=== PATIENT | female | born 1945 | race Caucasian/White ===

== ENCOUNTER → 2019-02-16 | Outpatient (REF) | payer MEDICARE, OTHER | LOC: M LAB REF 17:04 | PROVIDERS: ATTEND Advanced Practice Midwife | DX: R30.0 Dysuria (principal) ==

== ENCOUNTER 2019-08-22 07:36 | Inpatient (IN) | payer MEDICARE, OTHER ==
[~2019-08-22] VITALS: Ht 172.7 cm; Wt 88.2 kg
[2019-08-22] MEDS ORDERED: ROPI3TAB3 PO ×2 (07:47→14:24)
[2019-08-22] MEDS ORDERED: GABA-843 PO (07:47)
[2019-08-22] MEDS ORDERED: ATOR1TAB21 PO (07:47)
[2019-08-22] MEDS ORDERED: MAGN1CAP PO (07:47)
[2019-08-22] MEDS ORDERED: POTA1TAB14 PO (07:47)
[2019-08-22] MEDS ORDERED: PLAV1TAB2 PO (07:47)
[2019-08-22] MEDS ORDERED: OCUV1CAP4 PO (07:47)
[2019-08-22] MEDS ORDERED: ASPI81TA85 PO (07:47)
[2019-08-22] MEDS ORDERED: VITA-122 PO (07:49)
[2019-08-22] MEDS ORDERED: CVS2500C PO (07:49)
[2019-08-22] MEDS ORDERED: CARB10TA6 PO (07:49)
[2019-08-22 09:33] LABS: BASO % 0.2 % (0.0-1.0); EOS % 0.2 % (0.0-3.0); HEMATOCRIT 41.9 % (36.0-47.0); HEMOGLOBIN 13.6 g/dl (12.0-15.5); LYMPH # 0.4 10^3/uL (1.5-5.0); LYMPH % 6.7 % (24.0-44.0); MEAN CORPUSCULAR HEMOGLOBIN 32.2 pg (27.0-33.0); MEAN CORPUSCULAR HGB CONC 32.5 g/dl (32.0-36.5); MEAN CORPUSCULAR VOLUME 99.1 fl (80.0-96.0); MONO # 0.1 10^3/uL (0.0-0.8); MONO % 2.2 % (0.0-5.0); NEUTROPHILS % 90.5 % (36.0-66.0); PLATELET COUNT, AUTOMATED 167 10^3/uL (150-450); RED BLOOD COUNT 4.23 10^6/uL (4.00-5.40); WHITE BLOOD COUNT 5.6 10^3/uL (4.0-10.0)
[2019-08-22 10:05] LABS: ALBUMIN 3.7 GM/DL (3.2-5.2); ALT/SGPT 9 U/L (12-78); BILIRUBIN,DIRECT 0.2 MG/DL (0.0-0.2); BILIRUBIN,TOTAL 2.6 MG/DL (0.2-1.0); BLOOD UREA NITROGEN 27 MG/DL (7-18); CALCIUM LEVEL 8.9 MG/DL (8.8-10.2); CARBON DIOXIDE LEVEL 30 MEQ/L (21-32); CHLORIDE LEVEL 105 MEQ/L (98-107); CK-MB VALUE MASS < 1.0 NG/ML (<3.6); CPK CREATINE PHOSPHOKINASE 62 U/L (26-192); CREATININE FOR GFR 0.82 MG/DL (0.55-1.30); GLOMERULAR FILTRATION RATE > 60.0 (>39); GLUCOSE, FASTING 95 MG/DL (70-100); LIPASE 107 U/L (73-393); MB/CK RELATIVE INDEX 1.61 (< OR =4); SODIUM LEVEL 141 MEQ/L (136-145); TOTAL PROTEIN 6.6 GM/DL (6.4-8.2); TROPONIN I < 0.02 NG/ML (< 0.10)
[2019-08-22] MEDS: GASTROGRAFIN SOLUTION 30ML PO SCH ×2 (10:24→10:55)
--- NOTE | 2019-08-22 10:35 | REP ---
Chest x-ray: Two views. History: Abdomen pain. Comparison chest x-ray February 25, 2010. Findings: There is a moderate S-shaped thoracic scoliotic curve unchanged. Heart is mildly prominent also unchanged. There is plate-like atelectasis in the left base. Lung sexton are otherwise clear. Pleural angles are sharp. Pulmonary vasculature is not increased. Impression: Thoracic scoliosis. Mildly prominent heart unchanged. Plate-like atelectasis left base mild in degree. Otherwise negative. Electronically Signed by Sushil Mills MD 08/22/2019 10:27 A
[2019-08-22] MEDS ORDERED: NS 1,000 ML IV SCH (11:15)
[2019-08-22] MEDS ORDERED: ISOVUE-370 76% 100ML VIAL (Q9967) As Ordered ONE (11:19)
--- NOTE | 2019-08-22 12:08 | REP ---
CT ABDOMEN PELVIS WITH IV AND ORAL CONTRAST: HISTORY: Right lower quadrant pain and guarding. No comparison CT study. CT CONTRAST DOSE: 100 mL of intravenous Isovue 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 The lung bases show mild plate-like atelectasis bilaterally in the lower lobes. No pleural effusion or upper abdominal ascites is seen. The liver is normal in size. There are three or four tiny cysts along the inferior edge of the right lobe of the liver. The largest of these cysts measures 12 mm in greatest diameter. No focal splenic lesion is seen. The gallbladder is distended measuring up to 9.3 cm in greatest dimension x 5.3 x 4.5 cm. Its lumen is homogeneous. No stone is visible by CT. Gallbladder wall is not thickened. There is however mild intrahepatic and extrahepatic biliary ductal dilation. The common bile duct measures 10 mm in diameter. The main pancreatic duct is slightly dilated 3 mm in diameter. No pancreatic mass lesion is seen. No duodenal mass or calculus is seen. No peripancreatic edema or cyst is observed. No adrenal lesion is observed. There is an upper pole cyst in the right kidney which measures 4.6 cm in diameter. No hydronephrosis is seen on either side. There are multiple intrarenal calculi in the left kidney. These number 9 to 10. The largest of these measures 6-7 mm in diameter. No hydronephrosis is seen. No ureteral calculus or bladder calculus is observed. There are mildly dilated oral contrast filled loops of distal small bowel in the central abdomen question ileus. Fluid filled cecum is observed. The appendix is somewhat dilated measuring up to 14 mm in diameter. There is mural thickening in the appendix and there is some streaky of the periappendiceal fat. I cannot exclude early appendicitis. Lastly there is a small quantity of fluid in the pericolic gutter on the left. A tiny amount of pericolic gutter streaking is noted on the right. No free intraperitoneal air is observed. IMPRESSION: Multiple abnormalities includin. Mild intrahepatic and extrahepatic biliary ductal dilation and mildly dilated gallbladder no stone visible. The main pancreatic duct is also dilated. No pancreatic mass or other biliary obstructive lesion is visible. 2. There are three small cysts in the inferior tip of the liver. 3. Intrarenal nephrolithiasis without hydronephrosis. 4. Pericolic gutter fluid bilaterally. 5. Early inflammatory changes dilation and mural thickening and enhancement in the appendix suggestive of early appendicitis. 6. Ileus pattern in the bowel gas. 7. Right renal cyst. Electronically Signed by Sushil Mills MD 08/22/2019 02:15 P
[2019-08-22] MEDS ORDERED: SM P99TA PO (14:24)
[2019-08-22] MEDS ORDERED: ALEV220T22 PO (14:24)
[2019-08-22] MEDS ORDERED: CARB25TA9 PO (14:24)
[2019-08-22 15:01] LABS: CHLAMYDIA DNA AMPLIFICATION NEGATIVE (NEGATIVE); GC DNA AMPLIFICATION NEGATIVE (NEGATIVE)
[2019-08-22] MEDS ORDERED: CIPROFLOXACIN 400 MG in IV 1 EA IV ONE (15:15)
[2019-08-22] MEDS ORDERED: metroNIDAZOLE 500 MG in IV 1 EA IV ONE (15:15)
[2019-08-22] MEDS ORDERED: MORPHINE 2 MG/ML 1ML VIAL (J2270) IV PRN (16:00)
[2019-08-22] MEDS ORDERED: rOPINIRole 1MG TAB PO PRN (16:00)
--- NOTE | 2019-08-22 17:38 | CR ---
DATE OF CONSULTATION: 08/22/2019 CONSULTATION REPORT FOR: Dr. Isaacs [employer] [employer] [facility]: Hospitalist group. Hospitalist group was consulted on Ely Holman, a 73-year-old patient of Dr. Santos Alicea, being admitted with abdominal pain. Her past medical history is significant for Parkinson's disease. She looks to have hyperlipidemia, B12 deficiency, restless leg syndrome, various vitamin deficiencies. She tells me at one they thought she was hypertensive but she says "I got over that." HOME MEDICATIONS: - aspirin 81 mg daily - atorvastatin 20 mg daily - Sinemet 25/100 one three times a day - vitamin D 2000 units daily - Plavix 75 mg daily - B12 2500 mcg daily - gabapentin 600 mg at bedtime - Ocuvite - magnesium oxide 500 mg at bedtime - naproxen 440 mg twice a day - potassium gluconate at bedtime - Requip 3 mg at bedtime ALLERGIES: AUGMENTIN causes an unspecified reaction. REVIEW OF SYSTEMS: No rectal bleeding or epistaxis. No urinary bleeding, fever or chills. SOCIAL HISTORY: , does not smoke or drink significant amount of alcohol. PHYSICAL EXAMINATION: Afebrile. Vital signs are stable. GENERAL APPEARANCE: Alert, conversant, in no distress. HEENT: Unremarkable. Pupils are equal, round, and reactive to light. Tympanic membranes (TMs) and oropharynx benign. NECK: No masses. LUNGS: Clear. HEART: Regular rate and rhythm. No murmur. ABDOMEN: Soft, diffusely mildly tender. No guarding or rebound or referred pain. EXTREMITIES: No clubbing, cyanosis, or edema. Normal strength in the arms and legs. LABORATORY DATA: Chest x-ray showed no active disease. CT of the abdomen and pelvis showed a cyst in the liver, distended gallbladder which is not thickened, mild intra- and extrahepatic ductal dilatation, 10 mm common bile duct without pancreatis mass or lesion, large 4.6 cm cyst upper pole right kidney without hydronephrosis, multiple intrarenal calculi. No ureteral calculi. Appendix mildly dilated with mural thickening, ileus pattern. Sodium 141, potassium 4.0, BUN 27, creatinine 0.8, glucose 95. White count 5.6, hemoglobin 13.6, platelets 167. IMPRESSION: 1. Abdominal pain, per Dr. Isaacs. The case was discussed. The plan is for examination tomorrow. 2. Parkinson's disease. Continue with Sinemet at current doses. 3. Hyperlipidemia. Continue with atorvastatin at current dose. 4. Restless leg syndrome. Continue with Requip, apparently takes it at 3 mg before meals and at bedtime. Hospitalist will be available for medical care if necessary.
[2019-08-22 18:00] VITALS: BP 134/72
[2019-08-22] MEDS: NS 1,000 ML IV SCH ×2 (18:08→23:54)
[2019-08-22] MEDS: SINEMET 25-100 MG TAB PO SCH (18:08)
[2019-08-22 20:00] VITALS: BP 132/65
--- NOTE | 2019-08-22 20:15 | ECGEPIP ---
[facility] - ED Test Date: 2019-08-22 Pat Name: CHRIS BABCOCK Department: Room: - Gender: Female Clinical Fellow: : [id number] Requested By: LORI Wan PA-C Order Number: [id number] Reading MD: Trent Foster Measurements Intervals [place] Rate: 92 P: 73 WA: 170 QRS: 20 QRSD: 99 T: 72 QT: 365 QTc: 453 Interpretive Statements SINUS RHYTHM WITH OCCASIONAL SUPRAVENTRICULAR PREMATURE COMPLEXES LEFT ATRIAL ENLARGEMENT INCOMPLETE RIGHT BUNDLE BRANCH BLOCK ANTEROSEPTAL MYOCARDIAL INFARCTION, OF INDETERMINATE AGE NO PRIORS FOR COMPARISON Electronically Signed on 08-22-2019 20:15:13 EST by Trent Foster
[2019-08-22] MEDS: GABAPENTIN 300 MG CAP PO SCH (22:44)
[2019-08-22] MEDS: metroNIDAZOLE 500 MG in IV 1 EA IV SCH (22:44)
[2019-08-22] MEDS: rOPINIRole 1MG TAB PO SCH (22:45)
[2019-08-22] MEDS: ATORVASTATIN 20 MG TAB PO SCH (22:45)
[2019-08-22] MEDS: ULTRACET TAB PO PRN (22:46)
[2019-08-22 23:30] VITALS: BP 122/64
[2019-08-23 01:30] VITALS: BP 116/61
[2019-08-23] MEDS: CIPROFLOXACIN 400 MG in IV 1 EA IV SCH ×2 (04:22→16:27)
[2019-08-23] MEDS: NS 1,000 ML IV SCH ×3 (05:36→23:54)
[2019-08-23] MEDS: metroNIDAZOLE 500 MG in IV 1 EA IV SCH ×4 (05:37→22:13)
[2019-08-23 06:00] VITALS: BP 104/58
[2019-08-23 06:21] LABS: HEMATOCRIT 37.1 % (36.0-47.0); MEAN CORPUSCULAR HEMOGLOBIN 32.3 pg (27.0-33.0); MEAN CORPUSCULAR HGB CONC 32.3 g/dl (32.0-36.5); MEAN CORPUSCULAR VOLUME 99.7 fl (80.0-96.0); PLATELET COUNT, AUTOMATED 152 10^3/uL (150-450); RED BLOOD COUNT 3.72 10^6/uL (4.00-5.40); WHITE BLOOD COUNT 16.3 10^3/uL (4.0-10.0)
[2019-08-23 06:43] LABS: ALBUMIN 2.8 GM/DL (3.2-5.2); BILIRUBIN,TOTAL 3.9 MG/DL (0.2-1.0); CREATININE FOR GFR 1.24 MG/DL (0.55-1.30); POTASSIUM SERUM 3.6 MEQ/L (3.5-5.1)
--- NOTE | 2019-08-23 07:57 | HPE ---
DATE OF ADMISSION: 08/22/2019 The patient is 73-year-old female who developed severe abdominal pain yesterday morning and developed increasing abdominal pain on the day of admission which was quite severe in nature and over the ensuing few hours to the visit here to the emergency room she states that her abdominal pain is getting better than it was earlier this morning. A white count is normal however, on workup of her white count she was found to have multiple issues intra-abdominally on CT scan, including a dilated gallbladder, evidence of ileus with possible hyperemic right colon, small bowel and some a mild inflammatory changes around the appendix. She is somewhat restless in bed and getting up to the side of the bed while I was there at her bedside. She has had no fevers or chills. No nausea or vomiting. No diarrhea. No previous episodes of abdominal pain similar to this. Nobody else in the family with any diarrhea or GI symptoms. PAST MEDICAL HISTORY: Significant for history of Parkinson's disease, history of hyperlipidemia, restless leg syndrome, vitamin deficiencies. MEDICATIONS: - aspirin - atorvastatin - Sinemet - vitamin D - Plavix - B12 - gabapentin - Ocuvite - magnesium oxide - Naprosyn - potassium - Requip PHYSICAL EXAMINATION: Reveals a 73-year-old female who looks stated age. HEENT is unremarkable. Neck: Supple without adenopathy. Lungs are clear to auscultation without crackles, wheezes or rhonchi. Heart is regular. Abdomen is tender throughout her abdomen, both left side as well as right side but more on the right-hand side. IMPRESSION AND PLAN: The patient has evidence of abdominal pain of undetermined etiology. Her clinical history sounded good until she stated that her abdominal pain seemed to be resolving this afternoon for appendicitis and with a normal white count and with improving abdominal pain I do feel that it is reasonable to watch her and see how she does, however, she still has some significant intra-abdominal findings with some enteritis looking picture and some fluid within her abdomen and with this generalized abdominal pain I do have concern that she might have some sort of enteritis that is ongoing. I would recommend at this point that we start her on antibiotics. Other issues might be that if this is early appendicitis good treatment for this might be adequately antibiotic treatment. However, the other issues that she is on anticoagulation with Plavix and operative intervention has a significantly higher risk of bleeding given this problem. Thus I would recommend that at this time we will observe her, watch her closely, IV antibiotics and see how she is doing. I have instructed the patient's family that if she has increasing pain, increasing discomfort that we may need to proceed with operative intervention.
[2019-08-23] MEDS ORDERED: SINEMET 25-100 MG TAB PO SCH (08:00)
[2019-08-23] MEDS: PANTOPRAZOLE 40MG INJ (PROTONIX) (C9113) IV SCH (08:27)
[2019-08-23] MEDS: rOPINIRole 1MG TAB PO SCH ×4 (08:27→20:43)
[2019-08-23] MEDS: SINEMET 25-100 MG TAB PO SCH ×3 (08:27→16:27)
[2019-08-23] MEDS ORDERED: NS 500 ML IV ONE (08:45)
[2019-08-23 10:00] VITALS: BP 110/70
[2019-08-23] MEDS: ONDANSETRON 4MG/2ML VIAL (J2405) IV PRN (10:09)
[2019-08-23] MEDS: ULTRACET TAB PO PRN ×2 (10:09→16:54)
[2019-08-23 14:00] VITALS: BP 111/70
[2019-08-23 18:00] VITALS: BP 109/72
[2019-08-23] MEDS: ATORVASTATIN 20 MG TAB PO SCH (20:43)
[2019-08-23] MEDS: GABAPENTIN 300 MG CAP PO SCH (20:43)
[2019-08-23 22:00] VITALS: BP 108/69
[2019-08-24 02:00] VITALS: BP 110/70
[2019-08-24] MEDS: CIPROFLOXACIN 400 MG in IV 1 EA IV SCH ×2 (04:49→16:41)
[2019-08-24] MEDS: ULTRACET TAB PO PRN ×2 (05:39→12:36)
[2019-08-24] MEDS: metroNIDAZOLE 500 MG in IV 1 EA IV SCH ×5 (05:56→23:34)
[2019-08-24 06:00] VITALS: BP 106/64
[2019-08-24 07:09] LABS: HEMATOCRIT 33.9 % (36.0-47.0); MEAN CORPUSCULAR HEMOGLOBIN 32.4 pg (27.0-33.0); MEAN CORPUSCULAR HGB CONC 32.4 g/dl (32.0-36.5); MEAN CORPUSCULAR VOLUME 99.7 fl (80.0-96.0); PLATELET COUNT, AUTOMATED 141 10^3/uL (150-450); WHITE BLOOD COUNT 13.8 10^3/uL (4.0-10.0)
[2019-08-24 07:31] LABS: ALBUMIN 2.7 GM/DL (3.2-5.2); ALT/SGPT 16 U/L (12-78); BILIRUBIN,TOTAL 2.6 MG/DL (0.2-1.0); BLOOD UREA NITROGEN 35 MG/DL (7-18); CALCIUM LEVEL 7.9 MG/DL (8.8-10.2); CARBON DIOXIDE LEVEL 27 MEQ/L (21-32); CHLORIDE LEVEL 110 MEQ/L (98-107); GLOMERULAR FILTRATION RATE > 60.0 (>39); GLUCOSE, FASTING 104 MG/DL (70-100); LIPASE 50 U/L (73-393); POTASSIUM SERUM 3.2 MEQ/L (3.5-5.1); SODIUM LEVEL 139 MEQ/L (136-145); TOTAL PROTEIN 5.9 GM/DL (6.4-8.2)
[2019-08-24] MEDS: SINEMET 25-100 MG TAB PO SCH ×3 (09:01→16:40)
[2019-08-24] MEDS: PANTOPRAZOLE 40MG INJ (PROTONIX) (C9113) IV SCH (09:01)
[2019-08-24] MEDS: rOPINIRole 1MG TAB PO SCH ×4 (09:01→20:38)
[2019-08-24] MEDS ORDERED: PILL CUTTER 1 EACH XX PRN (09:30)
[2019-08-24 10:00] VITALS: BP 123/75
[2019-08-24] MEDS: SIMETHICONE 80 MG CHEW TAB PO SCH ×4 (10:06→20:38)
--- NOTE | 2019-08-24 11:24 | IPNPDOC ---
Subjective Date Seen The patient was seen on 08/24/19. Subjective Chief Complaint/HPI Says diarrhea is better today but the abdomen is still sore but not as bad as yesterday. no fever or chills, no chest pain or sob , no nausea or vomiting. Objective Physical Examination General Exam: Positive: Alert, Cooperative, No Acute Distress Eye Exam: Positive: PERRLA, Conjunctiva & lids normal, EOMI; Negative: Sclera icteric ENT Exam: Positive: Atraumatic, Mucous membr. moist/pink, Pharynx Normal Neck Exam: Positive: Supple; Negative: JVD, thyromegaly Chest Exam: Positive: Clear to auscultation, Normal air movement Heart Exam: Positive: Rate Normal, Regular Rhythm, Normal S1, Normal S2; Negative: Murmurs, Rubs Abdomen Exam: Positive: BS Hypoactive, Soft, Tenderness, Other (No guarding or rigidity) Assessment /Plan Assessment Abdominal pain and diarrhea Enteritis and appendicitis. gi panel positive for enteropathogenic e coli on cipro and flagyl CT scan concerns for early appendicitis. per Dr. Isaacs. Parkinson's disease. Continue with Sinemet at current doses. Hyperlipidemia. Continue with atorvastatin at current dose. Restless leg syndrome. Continue with Requip, apparently takes it at 3 mg before meals and at bedtime. H/o TIA continue gabapentin and statin but hold plavix. GI prophylaxis in place. Plan/VTE VTE Prophylaxis Ordered?: Yes VS, I&O, 24H, Fishbone Vital Signs/I&O Vital Signs Date Time Temp Pulse Resp B/P (MAP) Pulse Ox O2 Delivery O2 Flow Rate FiO2 08/24/19 06:09 14 08/24/19 06:00 97.8 86 106/64 (78) 98 08/23/19 22:00 Room Air I&O- Last 24 Hours up to 6 AM 08/24/19 06:00 Intake Total 1525 ml Output Total 1000 ml Balance 525 ml Laboratory Data 24H LABS Laboratory Tests 2 08/24/19 06:43: Nucleated Red Blood Cells % (auto) 0.0, Anion Gap 2L, Glomerular Filtration Rate > 60.0, Calcium Level 7.9L, Total Bilirubin 2.6H, Aspartate Amino Transf (AST/SGOT) 11, Alanine Aminotransferase (ALT/SGPT) 16, Alkaline Phosphatase 66, Total Protein 5.9L, Albumin 2.7L, Albumin/Globulin Ratio 0.84L, Lipase 50L CBC/BMP Laboratory Tests 08/24/19 06:43 Microbiology Microbiology 08/23/19 Gastrointestinal Tract Panel (PCR) - Final, Complete Enteropathogenic E.coli 08/22/19 Wet Prep - Final, Complete 08/22/19 Urine Culture - Final, Complete KEVIN HARDY MD Aug 24, 2019 11:22
[2019-08-24 14:00] VITALS: BP 118/71
[2019-08-24 18:00] VITALS: BP 116/70
--- NOTE | 2019-08-24 20:24 | IPN ---
DATE: 08/23/2019 The patient seems to be doing well, feeling much better from a pain standpoint. Even this morning she was a little bit better and later on in the day she has been little bit better than even this morning. Did have a temperature spike overnight and her white count did bump up, but now her temperature is back down. She is not having any nausea, having some significant diarrhea and otherwise complaining of mostly crampy abdominal pain, which radiates all across her abdomen, not on the right side more than left, just mostly throughout and feeling slightly distended, although less than yesterday. PHYSICAL EXAMINATION: Abdomen is softly distended, tympanitic with some mild tenderness to deep palpation throughout the abdomen without significant guarding, rebound or peritoneal signs. IMPRESSION AND PLAN The patient has evidence of enteritis; is most likely her diagnosis, although this may be an infectious enteritis. At this point, I do want to keep her on antibiotics for now. Will keep her with IV fluids for hydration, keep her nothing by mouth (npo). Will see how she does over the ensuing 12-24 hours. However, if her white count goes up higher or she spikes fever again, but I do feel that we need to repeat her CT scan to rule out possible progression of appendicitis that is unexpected at this time.
--- NOTE | 2019-08-24 20:27 | IPN ---
DATE: 08/24/2019 The patient seems to be making some better progress overnight, feeling better and her white count has dropped down a little bit. What we have as a new diagnosis is infectious E-coli as her primary diagnosis. She is not having any fevers overnight. Her white count as I stated dropped down and she states that her abdominal pain is better and she is still getting some crampy abdominal pain, less diarrhea that she had yesterday as well. PHYSICAL EXAMINATION: Reveals less distension than yesterday, but still some mild tenderness throughout without significant guarding, rebound or peritoneal signs. IMPRESSION AND PLAN The patient has evidence of infectious enteritis at this time and my recommendation is that we continue her on IV antibiotics, IV fluids but I do feel that it is reasonable to start her on clear liquid diet. I have encouraged her to go slowly with the clear liquids and then slowly progress her clear liquids overnight and if she tolerates this possibly proceeding to a low-residue diet tomorrow and if she tolerates that possible discharge home on Tuesday. She understands our current plan and will continue with increasing her activity and starting on clear liquids.
[2019-08-24] MEDS: GABAPENTIN 300 MG CAP PO SCH (20:38)
[2019-08-24] MEDS: ATORVASTATIN 20 MG TAB PO SCH (20:39)
[2019-08-24 22:00] VITALS: BP 122/69
[2019-08-25] MEDS: ULTRACET TAB PO PRN ×2 (00:16→20:20)
[2019-08-25 02:00] VITALS: BP 120/70
[2019-08-25] MEDS: CIPROFLOXACIN 400 MG in IV 1 EA IV SCH ×2 (03:25→16:11)
[2019-08-25] MEDS: metroNIDAZOLE 500 MG in IV 1 EA IV SCH ×4 (04:46→23:35)
[2019-08-25 06:00] VITALS: BP 123/68
[2019-08-25 06:49] LABS: HEMATOCRIT 34.2 % (36.0-47.0); HEMOGLOBIN 11.1 g/dl (12.0-15.5); MEAN CORPUSCULAR HEMOGLOBIN 32.2 pg (27.0-33.0); MEAN CORPUSCULAR HGB CONC 32.5 g/dl (32.0-36.5); MEAN CORPUSCULAR VOLUME 99.1 fl (80.0-96.0); PLATELET COUNT, AUTOMATED 161 10^3/uL (150-450); RED BLOOD COUNT 3.45 10^6/uL (4.00-5.40); WHITE BLOOD COUNT 12.5 10^3/uL (4.0-10.0)
[2019-08-25 07:20] LABS: ALBUMIN 2.7 GM/DL (3.2-5.2); ALT/SGPT 13 U/L (12-78); BLOOD UREA NITROGEN 27 MG/DL (7-18); CARBON DIOXIDE LEVEL 28 MEQ/L (21-32); CHLORIDE LEVEL 105 MEQ/L (98-107); CREATININE FOR GFR 0.78 MG/DL (0.55-1.30); GLOMERULAR FILTRATION RATE > 60.0 (>39); GLUCOSE, FASTING 101 MG/DL (70-100); LIPASE 90 U/L (73-393); SODIUM LEVEL 139 MEQ/L (136-145)
[2019-08-25] MEDS: SINEMET 25-100 MG TAB PO SCH ×3 (08:20→16:11)
[2019-08-25] MEDS: SIMETHICONE 80 MG CHEW TAB PO SCH ×4 (08:20→20:19)
[2019-08-25] MEDS: rOPINIRole 1MG TAB PO SCH ×4 (08:20→20:19)
[2019-08-25] MEDS: PANTOPRAZOLE 40MG INJ (PROTONIX) (C9113) IV SCH (08:21)
[2019-08-25 10:00] VITALS: BP 116/68
[2019-08-25] MEDS: ONDANSETRON 4MG/2ML VIAL (J2405) IV PRN ×2 (13:53→18:38)
[2019-08-25 14:00] VITALS: BP 131/76
--- NOTE | 2019-08-25 16:52 | IPNPDOC ---
Subjective Date Seen The patient was seen on 08/25/19. Subjective Chief Complaint/HPI feeling a little better today, abdominal pain is improving, tolerating clear liquids . no fever or chills. No further diarrhea. Abdomen still distended and feels like has a lot of jaxson Objective Physical Examination General Exam: Positive: Alert, Cooperative, No Acute Distress Eye Exam: Positive: PERRLA, Conjunctiva & lids normal, EOMI; Negative: Sclera icteric ENT Exam: Positive: Atraumatic, Mucous membr. moist/pink, Pharynx Normal Neck Exam: Positive: Supple; Negative: JVD, thyromegaly Chest Exam: Positive: Clear to auscultation, Normal air movement Heart Exam: Positive: Rate Normal, Regular Rhythm, Normal S1, Normal S2; Negative: Murmurs, Rubs Abdomen Exam: Positive: BS Hypoactive, Soft, Tenderness, Other (No guarding or rigidity) Extremity Exam: Positive: Normal pulses; Negative: Clubbing, Cyanosis, Edema Skin Exam: Positive: Nl turgor and temperature; Negative: Rash, Breakdown Assessment /Plan Assessment Abdominal pain and diarrhea Enteritis and appendicitis. gi panel positive for enteropathogenic e coli on cipro and flagyl Diet as per Dr. Isaacs. Parkinson's disease. Continue with Sinemet at current doses. Hyperlipidemia. Continue with atorvastatin at current dose. Restless leg syndrome. Continue with Requip, apparently takes it at 3 mg before meals and at bedtime. H/o TIA continue gabapentin and statin but hold plavix. GI prophylaxis in place. Plan/VTE VTE Prophylaxis Ordered?: Yes VS, I&O, 24H, Fishbone Vital Signs/I&O Vital Signs Date Time Temp Pulse Resp B/P (MAP) Pulse Ox O2 Delivery O2 Flow Rate FiO2 08/25/19 10:00 98.2 84 16 116/68 (84) 95 Room Air I&O- Last 24 Hours up to 6 AM 08/25/19 05:59 Intake Total 2520 ml Output Total 400 ml Balance 2120 ml Laboratory Data 24H LABS Laboratory Tests 2 08/25/19 06:01: Nucleated Red Blood Cells % (auto) 0.0, Anion Gap 6L, Glomerular Filtration Rate > 60.0, Calcium Level 8.0L, Total Bilirubin 2.0H, Aspartate Amino Transf (AST/SGOT) 13, Alanine Aminotransferase (ALT/SGPT) 13, Alkaline Phosphatase 63, Total Protein 6.0L, Albumin 2.7L, Albumin/Globulin Ratio 0.82L, Lipase 90 CBC/BMP Laboratory Tests 08/25/19 06:01 Microbiology Microbiology 08/23/19 Gastrointestinal Tract Panel (PCR) - Final, Complete Enteropathogenic E.coli 08/22/19 Wet Prep - Final, Complete 08/22/19 Urine Culture - Final, Complete KEVIN HARDY MD Aug 25, 2019 10:49
[2019-08-25 18:00] VITALS: BP 124/75
[2019-08-25] MEDS: GABAPENTIN 300 MG CAP PO SCH (20:19)
[2019-08-25] MEDS: ATORVASTATIN 20 MG TAB PO SCH (20:19)
[2019-08-25 22:00] VITALS: BP 123/73
[2019-08-25] MEDS: MIRALAX *UNIT DOSE* 17GM PACKET PO SCH ×2 (22:15→23:48)
[2019-08-26 02:00] VITALS: BP 125/72
[2019-08-26] MEDS: CIPROFLOXACIN 400 MG in IV 1 EA IV SCH ×2 (04:10→16:02)
[2019-08-26] MEDS: metroNIDAZOLE 500 MG in IV 1 EA IV SCH ×4 (05:43→22:32)
[2019-08-26 06:00] VITALS: BP 136/84
[2019-08-26 06:32] LABS: HEMATOCRIT 37.9 % (36.0-47.0); HEMOGLOBIN 12.1 g/dl (12.0-15.5); MEAN CORPUSCULAR HEMOGLOBIN 31.6 pg (27.0-33.0); MEAN CORPUSCULAR HGB CONC 31.9 g/dl (32.0-36.5); PLATELET COUNT, AUTOMATED 186 10^3/uL (150-450); RED BLOOD COUNT 3.83 10^6/uL (4.00-5.40); WHITE BLOOD COUNT 10.9 10^3/uL (4.0-10.0)
[2019-08-26 07:03] LABS: ALBUMIN 2.7 GM/DL (3.2-5.2); ALT/SGPT 9 U/L (12-78); BILIRUBIN,TOTAL 1.1 MG/DL (0.2-1.0); BLOOD UREA NITROGEN 25 MG/DL (7-18); CALCIUM LEVEL 8.2 MG/DL (8.8-10.2); CARBON DIOXIDE LEVEL 31 MEQ/L (21-32); CHLORIDE LEVEL 103 MEQ/L (98-107); CREATININE FOR GFR 0.77 MG/DL (0.55-1.30); GLOMERULAR FILTRATION RATE > 60.0 (>39); GLUCOSE, FASTING 119 MG/DL (70-100); LIPASE 206 U/L (73-393); POTASSIUM SERUM 3.1 MEQ/L (3.5-5.1); SODIUM LEVEL 138 MEQ/L (136-145); TOTAL PROTEIN 6.4 GM/DL (6.4-8.2)
[2019-08-26] MEDS: rOPINIRole 1MG TAB PO SCH ×5 (07:30→22:30)
[2019-08-26] MEDS: SINEMET 25-100 MG TAB PO SCH ×4 (08:00→16:02)
[2019-08-26] MEDS: MIRALAX *UNIT DOSE* 17GM PACKET PO SCH ×2 (08:06→09:00)
[2019-08-26] MEDS: PANTOPRAZOLE 40MG INJ (PROTONIX) (C9113) IV SCH (08:06)
[2019-08-26] MEDS: SIMETHICONE 80 MG CHEW TAB PO SCH ×4 (08:07→22:29)
[2019-08-26] MEDS: ULTRACET TAB PO PRN ×2 (08:08→16:02)
[2019-08-26 10:00] VITALS: BP 140/85
[2019-08-26] MEDS: ONDANSETRON 4MG/2ML VIAL (J2405) IV PRN (10:19)
[2019-08-26] MEDS: POTASSIUM CHLORIDE 10 MEQ SR TABLET PO SCH (11:07)
--- NOTE | 2019-08-26 11:17 | IPNPDOC ---
Subjective General Date/Time Seen The patient was seen on 08/26/19 at 11:14. Subject Chief Complaint/History The patient is a 73-year-old female admitted with a reason for visit of Abdominal Pain Colitis. Patient not feeling well overnight, having abdominal cramps, abdominal distention. She is not passing much flatus. She has not had a bowel movement since the time when she was having diarrhea roughly 3 days ago. She has been afebrile. Current Medications Current Medications Current Medications Medications (Trade) Dose Ordered Sig/Mariana Route PRN Reason Start Time Stop Time Status Last Admin Dose Admin Atorvastatin Calcium (Lipitor) 20 mg QHS PO 08/22/19 21:00 08/25/19 20:19 Carbidopa/Levodopa (Sinemet 25/100) 1 tab TID@0800,1200,1600 PO 08/22/19 17:15 08/26/19 11:06 Carbidopa/Levodopa (Sinemet 25/100) 1 tab TID@0800,1200,1600 PO 08/23/19 08:00 08/22/19 17:14 DC Ciprofloxacin 400 mg/IV Miscellaneous Supplies 200 ml @ 200 mls/hr Q12H IV 08/23/19 04:00 08/26/19 04:10 Diatrizoate Meglum/ Diatrizoate Sod (Gastrografin) 10 ml Q30M PO 08/22/19 09:45 08/22/19 10:16 DC 08/22/19 10:55 Gabapentin (Neurontin) 600 mg QHS PO 08/22/19 21:00 08/25/19 20:19 Home Med (Med Rec Complete!) ASDIRECTED XX 08/22/19 14:30 08/22/19 14:25 DC Metronidazole 500 mg/IV Miscellaneous Supplies 100 ml @ 100 mls/hr Q6H IV 08/22/19 23:00 08/26/19 11:07 Morphine Sulfate (Morphine Sulfate Inj) 2 mg Q4HP PRN IV SEVERE PAIN (PS 8-10) 08/22/19 16:00 08/26/19 10:13 Ondansetron HCl (ZOFRAN INJection) 4 mg Q6HP PRN IV NAUSEA OR VOMITING 08/22/19 16:00 08/26/19 10:19 Pantoprazole Sodium (Protonix) 40 mg DAILY IV 08/23/19 09:00 08/26/19 08:06 Polyethylene Glycol (Miralax) 1 pkt DAILY PO 08/25/19 22:15 08/26/19 08:06 Potassium Chloride (Micro-K Extencaps) 20 meq DAILY PO 08/26/19 09:00 08/26/19 11:07 Ropinirole HCl (Requip) 3 mg ACHS PO 08/22/19 21:00 08/26/19 11:06 Ropinirole HCl (Requip) 3 mg QHSP PRN PO RESTLESSNESS (see comments) 08/22/19 16:00 Simethicone (Mylicon) 120 mg QID PO 08/24/19 09:00 08/26/19 08:07 Sodium Chloride 1,000 ml @ 125 mls/hr Q8H IV 08/22/19 11:15 08/22/19 16:49 DC 08/22/19 11:14 Sodium Chloride 1,000 ml @ 125 mls/hr Q8H IV 08/22/19 15:54 08/24/19 09:22 DC 08/23/19 16:19 Tramadol/ Acetaminophen (Ultracet 37.5/ 325 Mg) 1 tab Q6HP PRN PO MILD/MODERATE PAIN (PS 1-7) 08/22/19 16:00 08/26/19 08:08 Allergies Coded Allergies: amoxicillin (Verified Allergy, Unknown, 08/22/19) clavulanic acid (Verified Allergy, Unknown, 08/22/19) Objective Physical Examination Examination GENERAL APPEARANCE: Patient mildly uncomfortable from the nausea. She has got medications for this. SKIN: Warm and dry. HEENT: Normocephalic, atraumatic. [place] palpebral conjunctiva, anicteric sclerae. Lips and mucosa appear dry. NECK: Supple, no thyromegaly. No obvious jugular venous distention. LUNGS: Clear to auscultation bilaterally. No wheezing appreciated. HEART: No chest wall abnormalities. Regular rate and rhythm with no murmurs appreciated. ABDOMEN: Abdomen is moderately distended, soft, and tympanitic to percussion throughout, quiet abdomen. EXTREMITIES: Extremities have no deformities. No edema identified. Vital Signs Vital Signs Date Time Temp Pulse Resp B/P (MAP) Pulse Ox O2 Delivery O2 Flow Rate FiO2 11/10/19 10:23 18 Room Air 08/26/19 10:00 98.2 75 140/85 (103) 95 I&Os I&O- Last 24 Hours up to 6 AM 08/26/19 05:59 Intake Total 1950 ml Output Total 650 ml Balance 1300 ml Laboratory Data Labs 24H CBC/BMP Laboratory Tests 08/26/19 06:08 Microbiology Microbiology 08/23/19 Gastrointestinal Tract Panel (PCR) - Final, Complete Enteropathogenic E.coli 08/22/19 Wet Prep - Final, Complete 08/22/19 Urine Culture - Final, Complete Impression Enterocolitis with end for pathogenic Escherichia coli on Cipro and Flagyl I suspect she is having ileus. I'll get an abdominal x-ray to check on this today. I'll put her on nothing by mouth for now. She has some hypokalemia which needs to be corrected which probably is contributing to the ileus. I instructed her to walk the hallways to help relieve the abdominal distention and hopefully break the ileus. Her leukocytosis continues to get better. However will set her up for a CT of the abdomen and pelvis in the morning. I don't think that she would be able to tolerate any oral contrast at this point. Plan / VTE VTE Prophylaxis Ordered?: Yes HASEEB TRUONG MD Aug 26, 2019 11:17
--- NOTE | 2019-08-26 12:15 | REP ---
Acute abdominal series three views including PA chest and supine upright abdomen: PA chest: Comparison is 08/22/2019. There is slight effacement of the right costophrenic angle suggestive of a small right pleural effusion. This is unchanged. There is effacement of the left costophrenic angle as an interval change suggestive of a new left pleural effusion. There is a left lower lobe infiltrate, also an interval change. There is no free subdiaphragmatic air. There is thoracic scoliosis convex right. Cardiac size is normal. Impression: Probable bilateral pleural effusions. Left lower lobe infiltrate. No free subdiaphragmatic air. Thoracic scoliosis. Abdomen, supine upright views: Comparison is the abdomen and pelvis CT of 08/22/2019. There are multiple dilated small bowel loops with multiple air-fluid levels compatible with small bowel obstruction. Impression: Small bowel obstruction. Electronically Signed by Matt Mckenna MD 08/26/2019 12:07 P
[2019-08-26 14:00] VITALS: BP 126/76
[2019-08-26] MEDS: GASTROGRAFIN SOLUTION 30ML PO SCH ×2 (14:45→14:57)
[2019-08-26] MEDS ORDERED: ISOVUE-370 76% 100ML VIAL (Q9967) As Ordered ONE (15:32)
[2019-08-26 18:00] VITALS: BP 139/84
--- NOTE | 2019-08-26 18:14 | REPVR ---
PROCEDURE INFORMATION: Exam: CT Abdomen And Pelvis With Contrast Exam date and time: 08/26/2019 5:13 PM Clinical history: 73 years old, female; Abdominal pain; Generalized; Additional info: Small bowel obstruction TECHNIQUE: Imaging protocol: Computed tomography of the abdomen and pelvis with intravenous contrast. Radiation optimization: All CT scans at this facility use at least one of these dose optimization techniques: automated exposure control; mA and/or kV adjustment per patient size (includes targeted exams where dose is matched to clinical indication); or iterative reconstruction. Contrast material: ISOVUE 370; Contrast volume: 100 ml; Contrast route: IV; COMPARISON: CT ABD/PEL W/IV ORAL CONTRAS 08/22/2019 11:24 AM FINDINGS: Lungs: Bilateral lower lobe atelectasis. Pleural space: Tiny bilateral pleural effusions. Liver: Tiny cysts within the inferior edge of the right hepatic lobe, unchanged. Gallbladder and bile ducts: The gallbladder is distended and there is minimal gallbladder wall thickening. No calcified gallstones are seen. The common bile duct is mildly dilated, measuring 9 mm. Minimal intrahepatic duct dilatation is present. Correlate with signs and symptoms of biliary obstruction. Consider right upper quadrant ultrasound. No calcified stones are identified within the gallbladder or common bile duct. Pancreas: Unremarkable. No ductal dilation. Spleen: Unremarkable. No splenomegaly. Adrenals: Normal. No mass. Kidneys and ureters: Right renal cyst, measuring 4.5 cm. Nonobstructing stones within both kidneys. No hydronephrosis. Stomach and bowel: The mid and distal small bowel are diffusely distended and contain fluid levels. There is a significant caliber transition of bowel in the region of the ileocecal valve with decompression of the entire colon. No pneumatosis identified. Appendix: 2 foci of high density material within the appendix is likely retained enteric contrast from the previous study. Calcified appendicoliths are not excluded. The appendix is distended measuring up to 13 mm in diameter and there is mild appendix wall thickening. There are inflammatory changes in the region of the base of the appendix, cecum, and ileocecal valve. There are findings suspicious for an extraluminal low-density collection containing a few tiny gas bubbles measuring approximately 6 cm x 2.5 cm x 1.5 cm within the right lower quadrant (axial images 105 through 118, and coronal reformatted images 34 through 45). These findings are suspicious for organizing abscess. The etiology is uncertain and may be secondary to acute appendicitis, inflammatory process involving the cecum or terminal ileum. An underlying neoplastic process is not completely excluded. Intraperitoneal space: Small volume of low-density ascites within the posterior cul-de-sac, increased since the prior exam. No free intraperitoneal air. Vasculature: Unremarkable. No abdominal aortic aneurysm. Lymph nodes: Unremarkable. No enlarged lymph nodes. Bladder: Unremarkable as visualized. Reproductive: Unremarkable as visualized. Bones/joints: No acute fracture. Soft tissues: Unremarkable. IMPRESSION: 1. High-grade small bowel obstruction in the region of the ileocecal valve. 2. Inflammatory changes in the right lower quadrant with distortion of the ileocecal valve region and base of the appendix. The findings are most likely secondary to ruptured appendicitis. A cecal or distal small bowel inflammatory or neoplastic process is not completely excluded. 3. Findings suspicious for extraluminal low-density collection containing a few tiny gas bubbles measuring 6 cm x 2.5 cm x 1.5 cm located within the right lower quadrant, new since the prior study. These findings are suspicious for organizing abscess. 4. Distended gallbladder with mild wall thickening and mild bile duct dilatation. Correlate with signs and symptoms of biliary obstruction. Consider right upper quadrant ultrasound as clinically indicated. COMMENT: Consistent with the [employer]'s Incidental Findings Committee Report (J Am Jo Radiol 2010): Unless the patient's specific circumstances suggest otherwise, any liver lesion 0.5 cm or less, any cystic kidney lesion less than 1.0 cm, and/or any adrenal lesion 1.0 cm or less not otherwise characterized in this report as possessing suspicious or indeterminate imaging features is/are highly likely to be benign and do not require follow-up imaging or biopsy. Electronically signed by: Levy Gibbons On 08/26/2019 18:14:25 PM
--- NOTE | 2019-08-26 20:41 | IPNPDOC ---
Text Note Date of Service The patient was seen on 08/26/19. NOTE I spoke to the by phone with regards to the result of the CT scan. It looks like she most likely have had appendicitis which has progressed to involve part of the cecum, maybe forming an abscess (though no well defined loculated collection can be seen yet). This area of inflammation is causing a bowel obstruction. Plan for tonight is to place an NGT and try to decompress the small bowel. Depending on her course, in a couple of days we can recheck if she forms a drainable collection and clinically if the obstruction would resolve itself. If not resolving we may need to go to the OR (laparoscopically or open) depending on her abodminal distention but vadim probably need ileocolic resection at that time. VS,Fishbone, I+O VS, Fishbone, I+O Laboratory Tests 08/26/19 06:08 Vital Signs Date Time Temp Pulse Resp B/P (MAP) Pulse Ox O2 Delivery O2 Flow Rate FiO2 08/26/19 18:00 98.0 93 17 139/84 (102) 54 Room Air I&O- Last 24 Hours up to 6 AM 08/26/19 06:00 Intake Total 1950 ml Output Total 400 ml Balance 1550 ml HASEEB TRUONG MD Aug 26, 2019 20:41
[2019-08-26 22:00] VITALS: BP 137/83
[2019-08-26] MEDS: ATORVASTATIN 20 MG TAB PO SCH (22:30)
[2019-08-26] MEDS: GABAPENTIN 300 MG CAP PO SCH (22:31)
[2019-08-27] VITALS (8 sets, daily range): BP systolic 89–142; BP diastolic 54–89
[2019-08-27] MEDS: ULTRACET TAB PO PRN (01:28)
[2019-08-27] MEDS: CIPROFLOXACIN 400 MG in IV 1 EA IV SCH ×2 (03:03→18:05)
[2019-08-27] MEDS: metroNIDAZOLE 500 MG in IV 1 EA IV SCH ×4 (04:40→23:18)
[2019-08-27 06:14] LABS: HEMATOCRIT 38.2 % (36.0-47.0); HEMOGLOBIN 12.2 g/dl (12.0-15.5); MEAN CORPUSCULAR HEMOGLOBIN 31.1 pg (27.0-33.0); MEAN CORPUSCULAR HGB CONC 31.9 g/dl (32.0-36.5); MEAN CORPUSCULAR VOLUME 97.4 fl (80.0-96.0); PLATELET COUNT, AUTOMATED 212 10^3/uL (150-450); RED BLOOD COUNT 3.92 10^6/uL (4.00-5.40); WHITE BLOOD COUNT 9.8 10^3/uL (4.0-10.0)
[2019-08-27 06:40] LABS: ALBUMIN 2.5 GM/DL (3.2-5.2); ALT/SGPT 9 U/L (12-78); BILIRUBIN,TOTAL 0.8 MG/DL (0.2-1.0); BLOOD UREA NITROGEN 19 MG/DL (7-18); CALCIUM LEVEL 7.9 MG/DL (8.8-10.2); CARBON DIOXIDE LEVEL 31 MEQ/L (21-32); CHLORIDE LEVEL 106 MEQ/L (98-107); CREATININE FOR GFR 0.62 MG/DL (0.55-1.30); GLOMERULAR FILTRATION RATE > 60.0 (>39); GLUCOSE, FASTING 106 MG/DL (70-100); LIPASE 298 U/L (73-393); POTASSIUM SERUM 3.1 MEQ/L (3.5-5.1); SODIUM LEVEL 140 MEQ/L (136-145)
[2019-08-27] MEDS: MIRALAX *UNIT DOSE* 17GM PACKET PO SCH (08:09)
[2019-08-27] MEDS: PANTOPRAZOLE 40MG INJ (PROTONIX) (C9113) IV SCH (08:09)
[2019-08-27] MEDS: POTASSIUM CHLORIDE 10 MEQ SR TABLET PO SCH (08:10)
[2019-08-27] MEDS: SINEMET 25-100 MG TAB PO SCH ×3 (08:10→16:00)
[2019-08-27] MEDS: SIMETHICONE 80 MG CHEW TAB PO SCH (08:10)
[2019-08-27] MEDS: rOPINIRole 1MG TAB PO SCH ×4 (08:10→23:19)
[2019-08-27] MEDS ORDERED: NS 1,000 ML IV ONE (10:00)
--- NOTE | 2019-08-27 10:09 | REP ---
Acute abdominal series: Three views. History: Small bowel obstruction. Comparison films are from August 26, 2019. Findings: Upright chest radiograph demonstrates a nasogastric tube in place entering the stomach. There is no evidence of free subdiaphragmatic air. There is blunting of the pleural angles bilaterally, left greater than right consistent with small bilateral effusions. A moderate S-shaped thoracic and lumbar scoliotic curve is seen. Mild cardiomegaly is again observed. Supine and erect views of the abdomen show persistently moderately dilated central abdominal small bowel loops with mucosal fold thickening consistent with some degree of mural edema. There is a paucity of distal bowel gas. Upright film demonstrates differential air-fluid levels in these loops similar to yesterday's radiograph. The findings are compatible with small bowel obstruction. No evidence of free air. Impression: Persistent small bowel obstruction pattern. No evidence of free air. Electronically Signed by Sushil Mills MD 08/27/2019 01:45 P
[2019-08-27] MEDS ORDERED: NS 1,000 ML IV SCH (10:30)
--- NOTE | 2019-08-27 11:46 | ECGEPIP ---
[facility] Test Date: 2019-08-27 Pat Name: CHRIS BABCOCK Department: Room: [place] [address] Gender: Female Manager Monitoring: EMILIANA : 1945 Requested By: KEVIN HARDY Order Number: [id number] Reading MD: Milvia Dyson Measurements Intervals Upson Rate: 173 P: IL: 0 QRS: 84 QRSD: 95 T: 39 QT: 272 QTc: 462 Interpretive Statements ATRIAL FIBRILLATION WITH RAPID VENTRICULAR RESPONSE WITH ABERRANT CONDUCTION OR VENTRICULAR PREMATURE COMPLEXES LOW QRS VOLTAGE IN PRECORDIAL LEADS new borderline rt axis ANTEROSEPTAL MYOCARDIAL INFARCTION, OF INDETERMINATE AGE RIGHT VENT COND DELAY NOT SEEN ON PRIOR LOW VOLTAGE NEW A FIB NEW C/W 08/22/19 NOW ALSO WITH PROLONG QTC Electronically Signed on 08-27-2019 11:46:27 EST by Milvia Dyson
[2019-08-27] MEDS ORDERED: DIGOXIN INJ 0.5 MG/2 ML AMP (J1160) IV ONE (12:00)
[2019-08-27] MEDS ORDERED: DIGOXIN INJ 0.5 MG/2 ML AMP (J1160) As Ordered ONE (12:03)
[2019-08-27] MEDS: KCL 40MEQ in NS 1000ML 1,000 ML IV SCH (12:19)
--- NOTE | 2019-08-27 13:56 | IPNPDOC ---
Subjective Date Seen The patient was seen on 08/27/19. Subjective Chief Complaint/HPI Patient continues to have abdominal distension though says the pain is a little better, did have some stool output yesterday. patient noted to be tachycardic and hypotensive at around 8:30 am during routine vital check . patient was ordered 1 liter of bolus and went down for abdominal xay. Pateint then got an EKG and was found to have afib with rvr with rates ranging from 160 to 190 with BP 92/42. patient was urgently moved to PCU. give another bolus of 500 cc normal saline and given digoxin 0.5 mg iv once. and was started on maintenence IVF with potassium. Did not have any palpitation or sob or chest pain Objective Physical Examination General Exam: Positive: Alert, Cooperative, No Acute Distress Eye Exam: Positive: PERRLA, Conjunctiva & lids normal, EOMI; Negative: Sclera icteric ENT Exam: Positive: Atraumatic, Mucous membr. moist/pink, Pharynx Normal Neck Exam: Positive: Supple; Negative: JVD, thyromegaly Chest Exam: Positive: Clear to auscultation, Normal air movement Heart Exam: Positive: Rate Normal, Regular Rhythm, Normal S1, Normal S2; Negative: Murmurs, Rubs Abdomen Exam: Positive: BS Hypoactive, Soft, Tenderness, Other (No guarding or rigidity) Extremity Exam: Positive: Normal pulses; Negative: Clubbing, Cyanosis, Edema Skin Exam: Positive: Nl turgor and temperature; Negative: Rash, Breakdown Assessment /Plan Assessment Afib with rvr with rates ranging from 160 to 190 with BP 92/42. patient was urgently moved to PCU and given digoxin 0.5 mg iv once. started on maintenance IVF with potassium after IV bolus. remains NPO Acute appendicitis with possible local perforation and localization now with small bowel obstruction but no free air. on cipro and flagyl plan as per surgery. Parkinson's disease. Continue with Sinemet at current doses. Hyperlipidemia. will hold till eating po Restless leg syndrome. Continue with Requip, apparently takes it at 3 mg before meals and at bedtime. H/o TIA hold all meds tilltaking po GI prophylaxis in place. Plan/VTE VTE Prophylaxis Ordered?: Yes VS, I&O, 24H, Fishbone Vital Signs/I&O Vital Signs Date Time Temp Pulse Resp B/P (MAP) Pulse Ox O2 Delivery O2 Flow Rate FiO2 08/27/19 12:24 102/62 (75) 08/27/19 12:08 175 08/27/19 10:00 99.2 22 95 Room Air I&O- Last 24 Hours up to 6 AM 08/27/19 06:00 Intake Total 600 ml Output Total 650 ml Balance -50 ml Laboratory Data 24H LABS Laboratory Tests 2 08/27/19 05:39: Nucleated Red Blood Cells % (auto) 0.0, Anion Gap 3L, Glomerular Filtration Rate > 60.0, Calcium Level 7.9L, Total Bilirubin 0.8, Aspartate Amino Transf (AST /SGOT) 23, Alanine Aminotransferase (ALT/SGPT) 9L, Alkaline Phosphatase 68, Total Protein 6.0L, Albumin 2.5L, Albumin/Globulin Ratio 0.71L, Lipase 298 CBC/BMP Laboratory Tests 08/27/19 05:39 Microbiology Microbiology 08/23/19 Gastrointestinal Tract Panel (PCR) - Final, Complete Enteropathogenic E.coli 08/22/19 Wet Prep - Final, Complete 08/22/19 Urine Culture - Final, Complete KEVIN HARDY MD Aug 27, 2019 13:55
[2019-08-27] MEDS ORDERED: LIDOCAINE 1% MDV 20ML VIAL As Ordered ONE (16:02)
[2019-08-27] MEDS: HumaLOG INSULIN (NovoLOG) PER UNIT SC SCH (18:00)
[2019-08-27] MEDS ORDERED: MULTIVITAMIN -ADULT INJECTION 10 ML, CR/CU/SE/MN/ZN INJ 1 ML in AMINO AC/ELECTROLYTE/DE... IV SCH (18:00)
[2019-08-27] MEDS ORDERED: FAT EMULSION IV 20% 500 ML IV SCH (18:00)
[2019-08-27] MEDS: SODIUM CHLORIDE 0.9% INJ 10 ML SYR IV SCH (18:06)
--- NOTE | 2019-08-27 23:46 | IPN ---
DATE: 08/27/2019 The patient was seen earlier today for evidence of small bowel obstruction and essentially states that her small bowel obstruction from yesterday/abdominal distension issues have improved, and it is much less than it was yesterday. She had a bowel movement today, which was a relatively large bowel movement with some diarrhea components to it. She has had a normalizing white count and her CT scan revealed high-grade small bowel obstruction, inflammatory changes in the right lower quadrant and the base of the appendix, questionable fluid collection developing abscess, organizing abscess, distended gallbladder. On the patient's physical exam, however, today her abdominal exam shows some distension but not significant compared to what it was yesterday and I got a follow-up x-ray which showed less small bowel loops distended compared to yesterday, which fits with her description of having an improved abdominal distension issue. Her tenderness of her abdomen is relatively mild and really does not even describe it as tenderness, maybe some discomfort with pressure sensation but no true peritoneal signs. IMPRESSION AND PLAN: 1. The patient has evidence of probable infectious etiology for her enteritis. However, it sounds as though she probably had an infectious Escherichia (E) coli bacteria that was her primary etiology. When I review the film in the area of the appendix, the majority of the appendix appears quite normal except for just some mild inflammation that was appreciated several days before. But even the base of this has some minimal fluid around the area, but I am not impressed that this is the primary source. It may easily be the terminal ileum in this area. In any case, with a normalizing white count, decreasing abdominal pain, and some progress from an infectious standpoint, I do feel that it is reasonable to continue her with her current treatment for this issue. And in general, if this is truly a developing abscess and she does not have progressive resolution of her symptoms, then we will perform another CT scan to see if there is truly an area that needs to be drained. 2. Her abdominal distension/obstruction seems to be better today than it was yesterday. No clinical indication for operative intervention, i.e. no peritoneal signs, decreasing abdominal distension and bowel movements. She understands our current plan from this standpoint with nasogastric (NG) tube decompression at this time. 3. The patient has not had any fluid over the last 24+ hours and even before then really was not taking much over the weekend. Her oral intake, and her blood pressure is a little soft today with a decreasing urine output. I would like to give her a fluid bolus, get her started on some total parenteral nutrition (TPN) and see if that does not make a difference with her overall status as well.
[2019-08-28] VITALS (7 sets, daily range): BP systolic 122–146; BP diastolic 60–90
[2019-08-28] MEDS: HumaLOG INSULIN (NovoLOG) PER UNIT SC SCH ×5 (00:57→23:50)
[2019-08-28] MEDS: CIPROFLOXACIN 400 MG in IV 1 EA IV SCH ×2 (04:12→16:14)
[2019-08-28] MEDS: metroNIDAZOLE 500 MG in IV 1 EA IV SCH ×4 (05:12→23:37)
[2019-08-28] MEDS: KCL 40MEQ in NS 1000ML 1,000 ML IV SCH ×3 (05:12→18:22)
[2019-08-28] MEDS: SODIUM CHLORIDE 0.9% INJ 10 ML SYR IV SCH ×2 (05:36→18:23)
[2019-08-28 05:59] LABS: HEMATOCRIT 38.1 % (36.0-47.0); HEMOGLOBIN 12.4 g/dl (12.0-15.5); MEAN CORPUSCULAR HEMOGLOBIN 31.7 pg (27.0-33.0); MEAN CORPUSCULAR HGB CONC 32.5 g/dl (32.0-36.5); MEAN CORPUSCULAR VOLUME 97.4 fl (80.0-96.0); PLATELET COUNT, AUTOMATED 247 10^3/uL (150-450); RED BLOOD COUNT 3.91 10^6/uL (4.00-5.40); WHITE BLOOD COUNT 10.4 10^3/uL (4.0-10.0)
[2019-08-28 06:23] LABS: ALBUMIN 2.7 GM/DL (3.2-5.2); ALT/SGPT 17 U/L (12-78); BILIRUBIN,TOTAL 0.7 MG/DL (0.2-1.0); BLOOD UREA NITROGEN 20 MG/DL (7-18); CALCIUM LEVEL 7.7 MG/DL (8.8-10.2); CARBON DIOXIDE LEVEL 32 MEQ/L (21-32); CHLORIDE LEVEL 105 MEQ/L (98-107); CREATININE FOR GFR 0.72 MG/DL (0.55-1.30); GLOMERULAR FILTRATION RATE > 60.0 (>39); GLUCOSE, FASTING 116 MG/DL (70-100); LIPASE 345 U/L (73-393); POTASSIUM SERUM 3.5 MEQ/L (3.5-5.1); SODIUM LEVEL 139 MEQ/L (136-145); TOTAL PROTEIN 6.1 GM/DL (6.4-8.2)
[2019-08-28] MEDS: PANTOPRAZOLE 40MG INJ (PROTONIX) (C9113) IV SCH (08:45)
[2019-08-28] MEDS: rOPINIRole 1MG TAB PO SCH ×5 (08:45→20:31)
[2019-08-28] MEDS: SINEMET 25-100 MG TAB PO SCH ×4 (08:45→16:14)
--- NOTE | 2019-08-28 09:37 | REP ---
Procedure: PICC line insertion with Rodney The procedure was performed under the direct supervision of Dr. Mills. The risks and benefits of the procedure were explained to the patient and informed consent was obtained. The right brachial vein was localized using ultrasound guidance. The skin was prepped and draped in a sterile fashion. 2% lidocaine was used as a local anesthetic. Using ultrasound guidance the brachial vein was cannulated and a 0.018 guidewire was inserted and advanced to the SVC using fluoroscopic guidance. The needle was removed and a 5.5 Upper Sorbian dilator and peel-away sheath was inserted over the guide wire. A 5.5 Upper Sorbian dual lumen catheter was cut to length of 36 cm. The dilator was removed and the catheter was inserted over the guide wire with the tip ending in the SVC. The peel-away sheath was removed and the catheter was flushed with heparinized saline as per Hospital protocol. The catheter was affixed to the skin and a sterile dressing was applied. The patient tolerated the procedure well and there were no immediate complications. 0.5 minutes of fluoro time was utilized for this procedure. Electronically Signed by PETER Blue 08/27/2019 05:53 P Electronically Signed by Sushil Mills MD 08/28/2019 09:28 A
[2019-08-28] MEDS: ONDANSETRON 4MG/2ML VIAL (J2405) IV PRN (11:55)
--- NOTE | 2019-08-28 17:28 | IPN ---
DATE: 08/28/2019 Patient had 100 mL gastric drainage last night, 150 total and 200 from this morning. She continues to have small frequent loose stools, two yesterday, three this morning. No abdominal pain, fever or chills. No shortness of breath, chest pain, pressure, tightness, lightheadedness or dizziness. PHYSICAL EXAM: Vital Signs: Temperature 99.2, pulse 85, respiratory rate 18, blood pressure 139/78, 93% on room air. Generally, nasogastric tube in place, draining out brownish, thick mucus bilious material. Lungs are clear to auscultation. No wheezing, rales or rhonchi. Heart: S1, S2, sinus rhythm. No murmurs, rubs, or gallops. Abdomen is soft, diminished bowel sounds, tender generally, no rebound or guarding. Extremities: No cyanosis, clubbing or any pitting edema. LABORATORY DATA: White count 10, hemoglobin 12, hematocrit 38, platelet count 247. Sodium 139, potassium 3.5, chloride 105, bicarbonate 32, BUN 20, creatinine 0.72, glucose of 116. Microbiology: Gastrointestinal (GI) Enteropathogenic Escherichia (E) coli on 08/23/2019. IMAGING STUDIES: CT abdomen and pelvis 08/26/2019: High-grade small bowel obstruction region of the ileocecal valve, inflammatory changes right lower quadrant, most likely secondary to ruptured appendicitis. Cecal or distal small bowel inflammatory or neoplastic process not completely excluded. Low density collection with tiny gas bubbles, 6 x 2.5 x 1.5 cm in right lower quadrant, new, suspicious for organizing abscess. Distended gallbladder with mild wall thickening, mild bile duct dilatation. Consider right upper quadrant ultrasound. Repeat abdominal x-ray 08/27/2019: Persistent small bowel obstruction pattern with no evidence of free air. ASSESSMENT AND PLAN: This is a 73-year-old female, history of Parkinson's, hyperlipidemia, restless legs, admitted on 08/22/2019 due to severe abdominal pain, found to have a high-grade small bowel obstruction, managed by surgery, currently nothing by mouth with total parenteral nutrition (TPN), intravenous (IV) antibiotics, Cipro and Flagyl, and nasogastric tube. ACTIVE ISSUES ARE FOLLOWS: 1. Ruptured appendicitis with loculated fluid collection causing bowel obstruction, managed by IV antibiotics. Remained afebrile with white count that decreased down to 9.8, slightly elevated today at 10.4. No complaints of chills. GI panel shows Enteropathogenic E coli. Repeat abdominal x-ray shows persistent bowel obstruction pattern. No evidence of free air. Per Dr. Isaacs, as of yesterday majority of the appendix appeared to be normal with mild inflammation days before. Recommendations are to repeat the CT if patient has no resolution of her symptoms to further assess possible abscess formation. For the bowel obstruction, continue nasogastric tube for decompression for now. No immediate plan for operative intervention. Continue with total parenteral nutrition (TPN) for now via peripherally inserted central catheter (PICC) line. 2. Atrial fibrillation with rapid ventricular response (RVR). Currently improved. Previous rate was 175, currently down to 85. Holding anticoagulation due to concerns for need for surgery. Vital signs appear to be much more stable today and blood pressure is well maintained. She was given IV Digoxin 0.5, maintenance fluids. 3. History of Parkinson's, on Sinemet. 4. Dyslipidemia. Holding oral medications. 5. Restless legs. On Requip at bedtime. MTDD
[2019-08-28] MEDS ORDERED: AMINO AC/ELECTROLYTE/DEX/CALC 2,000 ML IV SCH (18:00)
[2019-08-28] MEDS ORDERED: FAT EMULSION IV 20% 500 ML IV SCH (18:00)
--- NOTE | 2019-08-28 21:03 | IPN ---
DATE: 08/28/2019 Events of yesterday have been noted and overall the patient states that she is feeling better today. She is moving around better. More importantly, she has to get up every few minutes to hours to have bowel movements and she is feeling less distended than she was yesterday. Her NG tube unfortunately came out to 50 cm on her exam today and thus I inserted this up to 60 cm and I was able to get some fluid back with this and got it working again. In any case, she states that overall she feels better than she did yesterday. She does not have as much pain or discomfort. Her vitals show that she had a low grade temperature of 99. Her white count is slightly elevated from yesterday to 10.4 but not close to what it was on admission. PHYSICAL EXAMINATION: Reveals an abdomen which is softly distended but it is not tender like it had been previously. There is no tenderness from the standpoint of abdominal exam. No guarding, no rebound. No peritoneal signs. She definitely has some distended bowel with some tympanitic sounds present. IMPRESSION AND PLAN The patient's issues as follows. 1. Infectious process. With her diarrhea that is ongoing it sounds as though she still has an infectious process that is continuing. If she still has diarrhea tomorrow then I would recommend that we recheck the C. Difficile. It also could be that this diarrhea is resolution of her small bowel obstruction. In any case will see how this goes over the next day. 2. Small bowel obstruction, seems to be resolving clinically although definitely still some abdominal distension and tympany, thus suggesting that we have not completely resolved this bowel obstruction. She is having bowel movements and some minimal flatus and suggesting that she has a partial obstruction at most without evidence of complete obstruction. She does not have any surgical need for intervention from an emergency standpoint. She has no evidence of increasing pain, discomfort. No evidence of perforation. No evidence of peritoneal signs and thus it is very reasonable to continue with antibiotics at this time. If the patient has persistent symptoms and her stool cultures come back negative then I would recommend repeating the CT scan in the next 48 hours to rule out a possible progression of abscess. Right now I have reviewed this with one of the other surgeons and I am having significant difficulty appreciating an abscess that is related to the appendix and will see how this develops over the ensuing 48 hours.
[2019-08-29] MEDS: CIPROFLOXACIN 400 MG in IV 1 EA IV SCH (03:11)
[2019-08-29] MEDS: KCL 40MEQ in NS 1000ML 1,000 ML IV SCH ×3 (03:11→23:41)
[2019-08-29 04:00] VITALS: BP 146/90
[2019-08-29] MEDS: metroNIDAZOLE 500 MG in IV 1 EA IV SCH ×2 (04:25→11:32)
[2019-08-29] MEDS: SODIUM CHLORIDE 0.9% INJ 10 ML SYR IV SCH ×2 (05:10→18:00)
[2019-08-29] MEDS: HumaLOG INSULIN (NovoLOG) PER UNIT SC SCH ×4 (06:03→23:50)
[2019-08-29 06:11] LABS: HEMATOCRIT 42.1 % (36.0-47.0); HEMOGLOBIN 13.3 g/dl (12.0-15.5); MEAN CORPUSCULAR HEMOGLOBIN 31.5 pg (27.0-33.0); MEAN CORPUSCULAR HGB CONC 31.6 g/dl (32.0-36.5); MEAN CORPUSCULAR VOLUME 99.8 fl (80.0-96.0); PLATELET COUNT, AUTOMATED 274 10^3/uL (150-450); RED BLOOD COUNT 4.22 10^6/uL (4.00-5.40); WHITE BLOOD COUNT 12.8 10^3/uL (4.0-10.0)
[2019-08-29 06:35] LABS: ALBUMIN 2.8 GM/DL (3.2-5.2); ALT/SGPT 20 U/L (12-78); BILIRUBIN,TOTAL 0.4 MG/DL (0.2-1.0); BLOOD UREA NITROGEN 16 MG/DL (7-18); CALCIUM LEVEL 8.3 MG/DL (8.8-10.2); CARBON DIOXIDE LEVEL 31 MEQ/L (21-32); CHLORIDE LEVEL 105 MEQ/L (98-107); CREATININE FOR GFR 0.59 MG/DL (0.55-1.30); GLOMERULAR FILTRATION RATE > 60.0 (>39); GLUCOSE, FASTING 113 MG/DL (70-100); LIPASE 491 U/L (73-393); POTASSIUM SERUM 3.5 MEQ/L (3.5-5.1); SODIUM LEVEL 140 MEQ/L (136-145); TOTAL PROTEIN 6.5 GM/DL (6.4-8.2)
[2019-08-29 08:00] VITALS: BP 125/72
[2019-08-29] MEDS: PANTOPRAZOLE 40MG INJ (PROTONIX) (C9113) IV SCH (08:17)
[2019-08-29] MEDS: rOPINIRole 1MG TAB PO SCH ×4 (08:18→21:04)
[2019-08-29] MEDS: SINEMET 25-100 MG TAB PO SCH ×3 (08:18→17:21)
[2019-08-29] MEDS: GASTROGRAFIN SOLUTION 30ML PO SCH ×2 (08:18→08:56)
[2019-08-29] MEDS ORDERED: ISOVUE-370 76% 100ML VIAL (Q9967) As Ordered ONE (10:06)
--- NOTE | 2019-08-29 11:28 | REP ---
CT abdomen and pelvis with IV and oral contrast: History: Question abscess. Comparison CT study August 26, 2019. CT contrast dose: 100 mL of intravenous Isovue 370. CT findings: Digital preliminary neuro ophthalmologist radiograph demonstrates moderately dilated central abdominal small bowel loops and a paucity of distal gas consistent with small bowel obstruction. There are tiny small bilateral pleural effusions as seen previously. This may be slightly improved. There is associated bilateral lower lobe atelectasis. A nasogastric tube is seen entering the stomach lumen. There is lumbar scoliosis levoconvex. No focal hepatic or splenic lesion is seen. The gallbladder remains distended. Its wall is slightly thickened. No stone is visible. No pancreatic abnormality is seen. Common bile duct measures 6.5 mm. There are multiple intrarenal calculi in the left kidney and one or two on the right. There is a 4.2 cm right renal cyst again noted. No hydronephrosis is seen on either side. Dilated small bowel loops are seen opacified with contrast. The colon is empty and decompressed. There is only a tiny sliver of fluid in the cul-de-sac. This is improved. Inflammation is seen in the base the appendix where there is probably a small appendicolith. There is an elongate irregularly shaped fluid collection at the cecal tip and base of the appendix which may be an abscess. This measures 2.6 cm at its widest adjacent to the cecal tip. It is approximately 6.9 cm in length. It is tubular in shape. Most of it measures under 2 cm in diameter. It extends medially and drapes posteriorly over the external iliac vessels. Dilated small bowel loops are seen anteriorly. No other abscess is seen. Impression: Persistent small bowel obstruction pattern. Improved cul-de-sac fluid. Findings consistent with perforated appendicitis with appendicolith and a small periappendiceal sausage shaped abscess in the right lower quadrant. This is not easily accessible to percutaneous drainage. It is similar to its appearance on August 26, 2019. Nephrolithiasis right renal cyst and gallbladder distension are also noted. Small bilateral pleural effusions are seen. Nasogastric tube in place. Electronically Signed by Sushil Mills MD 08/29/2019 12:55 P
[2019-08-29 12:00] VITALS: BP 120/82
--- NOTE | 2019-08-29 13:42 | IPN ---
DATE: 08/29/2019 The patient still has had some diarrheal bowel movements and it seems to be small amounts at a time suggesting either this is still ongoing enteritis and I will order Clostridium (C) difficile on her, or possibly this is a developing abscess/organizing abscess that is contributing to this. In any case, she still feels distended but is having bowel movements and flatus. Her white count did bump to 12.8 today, and thus with this information I ordered a CAT scan. CAST scan results reveal a fluid collection in the right lower quadrant that is present and I have asked the interventionalist to place a percutaneous drainage catheter for a possible right lower quadrant abscess. She does have some fluid in the cul-de-sac down in pelvis, although this is much less fluid than it was previously suggesting this is less likely infectious etiology. IMPRESSION/PLAN: The patient has evidence of probable right lower quadrant abscess. We will see if the interventionalist can drain this and I anticipate once the infectious inflammatory process decreases it will help the partial obstruction/ileus associated with the infectious process improve and hopefully the next step will be removal of the nasogastric (NG) tube, etc. However, right now it is still uncertain why she had pathogenic Escherichia (E) coli as well as possible appendicitis as two distinct abnormalities, but in any case she is being covered for both with antibiotics at this time and will continue those.
--- NOTE | 2019-08-29 14:55 | IPN ---
DATE OF SERVICE: 08/29/2019 The patient seen and examined at the bedside. Chart has been reviewed. She continues to have copious amount of bowel movements every 20 minutes. Complains of increasing nausea and abdominal pain despite nasogastric tube, today, output was 2.58 liters, yesterday with three incontinent stools documented one this morning. Still on total parenteral nutrition (TPN). Gastric drainage was 550 and 325 this morning. She remains afebrile. No chills. Complains of slight shortness of breath this morning, especially with exertion. The patient is found to have small tiny pleural effusions on CT with some atelectasis bilaterally. Colon is decompressed. There is a collection at the cecal tip and base of the appendix which may be an abscess, tubular, measures under 2 cm, widest at 2.6 at the cecal tip approximately 6.9 cm in length draping over the external iliac vessels. Persistent small bowel obstruction pattern. Improved cul-de-sac fluid consistent with perforated appendicitis with appendicolith and a small periappendiceal sausage abscess in the right lower quadrant. Not easily accessible to percutaneous drainage. Similar to appearance on 08/26/2019. Small bilateral effusions. Nasogastric (NG) tube in place. c/o right upper arm pain and swelling behind the picc line. Vital Signs: Temperature 98.6, pulse 88, respiratory rate 18, blood pressure 120/82, 93% on room air. Generally, the patient appears slightly distressed. No use of accessory respiratory muscle. Anicteric. No jaundice. Dry mucous membranes. Nasogastric tube with bilious drainage. No jugular venous distention (JVD). No thyromegaly. No cervical lymphadenopathy. Lungs: Diminished but clear to auscultation. Fine crepitations at bilateral bases. Heart: S1, S2, sinus rhythm. No murmurs, rubs, or gallops. Abdomen: Soft, tender in right lower quadrant, no rebound or guarding. Nasogastric tube in place. Extremities: No cyanosis or clubbing. Trace edema. right upper arm edema with tender mobile fluctuance. laboratory data; White count 12.8, hemoglobin 13, hematocrit 42, platelet count 274. Sodium 140, potassium 3.5, chloride 105, bicarbonate 31, BUN 16, creatinine 0.59, glucose 113, calcium 8.3, total bilirubin (T Bili) 8.4, AST 33, ALT 20, alkaline phosphatase 74, total protein 6.5, albumin 2.8, lipase of 491. MICROBIOLOGY: Gastrointestinal (GI) panel: Enteropathogenic Escherichia (E.) coli. Repeat CT abdomen and pelvis: Persistent small bowel obstruction, improved cul-de-sac fluid, consistent with perforated appendicitis with appendicolith and a small periappendiceal sausage-shaped abscess in the right lower quadrant. This is not easily accessible to percutaneous drainage. This is similar to its appearance on 08/26/2019. Nephrolithiasis and a right renal cyst and gallbladder distention are also noted. Small bilateral pleural effusions are seen. Nasogastric tube in place. ASSESSMENT AND PLAN: This is a 73-year-old female, history of Parkinson disease, hyperlipidemia, restless legs, admitted on 08/22/2019 due to severe abdominal pain, found to have a high-grade small bowel obstruction, managed by surgery, currently nothing by mouth, TPN, intravenous (IV) antibiotics with Cipro and Flagyl, and nasogastric tube. Per Dr. Isaacs, general surgery, unlikely to be a ruptured appendix and abscess Repeat CT abdomen performed today shows similar finding. IMPRESSION: Ruptured appendicitis with abscess formation, requiring drainage with worsening white count and increased Right Lower quadrant tenderness. remains afebrile. Cipro / Flagyl discontinued. Meropenem started. Surgery to decide on drainage. Small bowel obstruction, partial resolving with nasogastric tube decompression. The patient, however, complains of severe pain in the right lower quadrant with some nausea this morning. Repeat CT abdomen and pelvis shows ruptured appendix with abscess formation. Defer to surgery for intervention. Due to increasing white count on Cipro and Flagyl, increasing pain and tenderness on examination, I have discontinued the Cipro and Flagyl and have changed the antibiotics to meropenem 1 gram IV every 8 hours. Enteropathogenic Escherichia (E.) coli on gastrointestinal (GI) panel. Per surgical recommendation, repeat GI panel to rule out C. difficile. Repeat CT abdomen and pelvis, however, shows persistent collection of fluid in the right lower quadrant concerning for ruptured appendix and abscess formation but will defer to surgery for further management. Currently, the patient is nothing by mouth with TPN. Right arm pain with fluctuance. ultrasound to rule out abscess or DVT. already on meropenem, but may need gram positive coverage. History of Parkinson's. Usually on Sinemet. Dyslipidemia. Holding oral medications. Restless legs. Holding medications for now. MTDD
[2019-08-29] MEDS ORDERED: LIDOCAINE 1% MDV 20ML VIAL As Ordered ONE (15:22)
--- NOTE | 2019-08-29 16:48 | REP ---
Right lower quadrant sonography: History: Right lower quadrant abscess. The patient is referred for percutaneous drainage. Findings: Scanning through the right lower quadrant demonstrates an irregularly shaped hypoechoic fluid collection between what appears to be cecal tip and overlying small bowel loop with peristalsis. There is no discernible percutaneous window for percutaneous catheter drainage. The collection seen measures 6.7 cm in length by 2.6 cm in greatest width. Impression: Right lower quadrant abscess is seen but small and large bowel loops overlie it. There is no safe percutaneous excess by ultrasound guidance. Electronically Signed by Sushil Mills MD 08/29/2019 05:23 P
[2019-08-29 17:00] VITALS: BP 135/90
--- NOTE | 2019-08-29 17:08 | REP ---
Right upper extremity duplex venous ultrasound: History: Right arm pain. Findings: There is a short segment of occlusive thrombosis in the distal basilic vein below the PICC line insertion. The patient's PICC line is seen in the brachial vein. There is nonocclusive thrombus along the wall of the proximal brachial vein to the level of the mid subclavian vein. There is a 7 mm area of mobile thrombus in the subclavian vein. No other evidence of right upper extremity venous thrombosis. Impression: Right upper extremity venous thrombosis including a short segment of occlusive thrombus in the distal basilic vein at and just above the antecubital fossa. There is a nonocclusive thrombus in the right brachial and subclavian veins. Electronically Signed by Sushil Mills MD 08/29/2019 05:00 P
[2019-08-29] MEDS: MEROPENEM INJ 1 GM in IV 1 EA IV SCH ×2 (17:20→21:06)
[2019-08-29] MEDS ORDERED: MULTIVITAMIN -ADULT INJECTION 10 ML, CR/CU/SE/MN/ZN INJ 1 ML in AMINO AC/ELECTROLYTE/DE... IV SCH (18:00)
[2019-08-29] MEDS ORDERED: AMINO AC/ELECTROLYTE/DEX/CALC 2,000 ML IV SCH (18:00)
[2019-08-29] MEDS ORDERED: FAT EMULSION IV 20% 500 ML IV SCH (18:00)
[2019-08-29 20:00] VITALS: BP 145/87
[2019-08-30] VITALS (11 sets, daily range): BP systolic 130–176; BP diastolic 52–98; O2SAT 81–95
[2019-08-30] MEDS: SODIUM CHLORIDE 0.9% INJ 10 ML SYR IV SCH ×2 (05:20→17:48)
[2019-08-30] MEDS: MEROPENEM INJ 1 GM in IV 1 EA IV SCH ×3 (05:43→21:01)
[2019-08-30] MEDS: ENOXAPARIN 80 MG/0.8 ML SYRINGE (J1650) SC SCH ×2 (06:00→17:46)
[2019-08-30] MEDS: HumaLOG INSULIN (NovoLOG) PER UNIT SC SCH ×4 (06:10→23:47)
[2019-08-30 06:16] LABS: BASO % 0.3 % (0.0-1.0); EOS # 0.2 10^3/uL (0.0-0.5); EOS % 1.5 % (0.0-3.0); HEMATOCRIT 38.3 % (36.0-47.0); HEMOGLOBIN 12.1 g/dl (12.0-15.5); LYMPH # 1.2 10^3/uL (1.5-5.0); LYMPH % 9.3 % (24.0-44.0); MEAN CORPUSCULAR HEMOGLOBIN 30.9 pg (27.0-33.0); MEAN CORPUSCULAR HGB CONC 31.6 g/dl (32.0-36.5); MONO # 0.6 10^3/uL (0.0-0.8); MONO % 4.5 % (0.0-5.0); NEUTROPHILS # 10.7 10^3/uL (1.5-8.5); NEUTROPHILS % 83.5 % (36.0-66.0); PLATELET COUNT, AUTOMATED 311 10^3/uL (150-450); RED BLOOD COUNT 3.91 10^6/uL (4.00-5.40); WHITE BLOOD COUNT 12.8 10^3/uL (4.0-10.0)
[2019-08-30 06:30] LABS: BLOOD UREA NITROGEN 15 MG/DL (7-18); C REACTIVE PROTEIN QUANTITATIV 4.17 MG/DL (0.00-0.30); CARBON DIOXIDE LEVEL 31 MEQ/L (21-32); CHLORIDE LEVEL 105 MEQ/L (98-107); CREATININE FOR GFR 0.56 MG/DL (0.55-1.30); GLOMERULAR FILTRATION RATE > 60.0 (>39); GLUCOSE, FASTING 127 MG/DL (70-100); SODIUM LEVEL 141 MEQ/L (136-145)
[2019-08-30 06:35] LABS: ERYTHROCYTE SEDIMENTATION RATE 17 mm/hr (0-30)
[2019-08-30] MEDS: SINEMET 25-100 MG TAB PO SCH ×3 (08:57→17:05)
[2019-08-30] MEDS: PANTOPRAZOLE 40MG INJ (PROTONIX) (C9113) IV SCH (08:57)
[2019-08-30] MEDS: rOPINIRole 1MG TAB PO SCH ×4 (08:57→21:01)
[2019-08-30] MEDS ORDERED: LIDOCAINE 1% MDV 20ML VIAL As Ordered ONE (10:33)
--- NOTE | 2019-08-30 11:32 | IPN ---
DATE OF SERVICE: 08/30/2019 The patient is afebrile. No chills. Feeling slightly better. Switched over to meropenem yesterday due to worsening white count, increasing right lower quadrant abdominal pain. Persistent abscess found on CT abdomen and pelvis. The patient went for a right lower quadrant ultrasound yesterday with a 6.7 x 2.6 cm collection found. The patient is scheduled drainage placement today. Steri-Strip Due to right upper extremity swelling and pain an ultrasound was performed, which showed extensive deep venous thrombosis (DVT) including an occlusive thrombus in the distal basilic vein above the antecubital fossa as well as the right brachial and subclavian veins. Lovenox has been held due to planned procedure for drainage placement today. The patient otherwise denies any chest pain, pressure or tightness, palpitations, lightheadedness. She does complain of some shortness of breath when she tries to get up as well as pain in the bilateral lower quadrants when she gets up and thinks that "I feel fullness." the patient otherwise denies any dysuria, urgency, frequency or flank pain. Afebrile overnight. Current temperature is 99.3, pulse 87, respiratory rate 17, blood pressure 152/98, 97% on room air. Generally, the patient is awake, alert, oriented times three, answering questions appropriately. No jugular venous distention (JVD) or thyromegaly. Moist mucous membranes. Lungs are diminished but clear to auscultation. No wheezing or rales. Heart: S1, S2, sinus rhythm. Abdomen is soft, tender in right lower quadrant. No rebound or guarding. Positive bowel sounds. Nasogastric (NG) tube has been discontinued. Extremities: No cyanosis, clubbing or pitting edema. Right upper extremity has a mobile tender swelling, which has decreased from yesterday, behind the peripherally inserted central catheter (PICC) line on the posterior aspect of the upper arm. LABORATORY DATA: White count 12.8, hemoglobin 12, hematocrit 38, platelet count 311. Sodium 141, potassium 4, chloride 105, bicarbonate 31, BUN 15, creatinine 0.56, glucose of 127, CRP 4.17. GASTROINTESTINAL (GI) PANEL: Enteropathogenic Escherichia (E) coli. IMAGING STUDIES: Vascular ultrasound of right upper extremity: Right upper extremity venous thrombosis including occlusive thrombus basilic vein about the antecubital fossa and a nonocclusive thrombus in the right brachial and subclavian veins. Abdominal ultrasound shows right lower quadrant collection 6.7 x 2.6 diameter width. ASSESSMENT AND PLAN: This is a 73-year-old female with history of Parkinson disease, hyperlipidemia, restless legs, admitted on 08/22/2019 with abdominal pain, diarrhea, found to have a high-grade small bowel obstruction, admitted to medical service, consulted general surgery. Patient had been kept nothing by mouth, on intravenous (IV) fluids and Cipro, Flagyl, nasogastric tube for decompression initially, then changed to total parenteral nutrition (TPN). Per Dr. Isaacs, General Surgery, it was likely to be a ruptured with abscess. She was continued on Cipro, Flagyl until 08/29/2019 when she developed worsening pain, increased white count without a fever. Repeat CT abdomen and pelvis has persistent findings of 6 x 7 fluid collection. Ultrasound confirmed the findings. The patient is to go for a drainage placement today. Still continued on TPN. CURRENT ISSUES: 1. Ruptured appendicitis with abscess in the right lower quadrant with worsening white count without fever. The patient's Cipro and Flagyl were discontinued. Meropenem started. General Surgery currently managing drainage plans. 2. Bowel obstruction, partial resolved with nasogastric tube compression still on TPN. Complains of right lower quadrant pain without nausea or vomiting.CT abd Continues to have ruptured appendix with abscess formation. Defer to surgery for intervention. Cipro, Flagyl have been discontinued. 3. Enteropathogenic Escherichia E coli on GI panel. Repeat GI panel has been obtained. Repeat CT of issues persistent collection in the right lower quadrant concerning for abscess. Defer to surgery for drainage plans. 4. Right upper extremity DVT with an occlusive thrombus in the antecubital fossa and nonocclusive thrombus in the brachial and subclavian veins. Anticoagulation after the drainage catheter has been placed. MTDD
[2019-08-30] MEDS ORDERED: NALOXONE INJ 0.4 MG/1 ML VIAL (J2310) IV PRN (15:00)
[2019-08-30] MEDS ORDERED: NALBUPHINE HCL 10 MG/ML AMP (J2300) IV PRN (15:00)
[2019-08-30] MEDS ORDERED: EPIDURAL/PCA KEYS XX PRN (15:00)
[2019-08-30] MEDS ORDERED: diphenhydrAMINE INJ 50MG/ML VIAL (J1200) IV PRN (15:00)
[2019-08-30] MEDS: NS 1,000 ML IV SCH (16:00)
[2019-08-30] MEDS: MORPHINE 1MG/ML IN 0.9% NACL 100ML IV BAG IV PRN (16:01)
--- NOTE | 2019-08-30 16:17 | REP ---
CT-GUIDED RIGHT LOWER QUADRANT ABSCESS DRAIN The procedure was performed under the direct supervision of Dr. Mills. Patient has a history of a periappendiceal, sausage shaped abscess in the right lower quadrant seen on a previous CT scan dated 08/29/2019. The risks and benefits of the procedure were explained to the patient and informed consent was obtained. The right lower quadrant abscess was localized using CT guidance. The skin was prepped and draped in a sterile fashion. 1% lidocaine was used as a local anesthetic. Using CT guidance a 10-Romansh Skater APDL catheter was inserted using trocar technique. 35 ml of beige proteinaceous fluid was withdrawn and sent to lab for analysis. The catheter was affixed to the skin and a sterile dressing was applied. The catheter was connected to a gravity drainage bag. The patient tolerated the procedure well and there were no immediate complications. After the appropriate amount of monitored convalescence the patient was discharged from the department. Electronically Signed by PETER Blue 08/30/2019 03:08 P Electronically Signed by Sushil Mills MD 08/30/2019 04:09 P
[2019-08-30] MEDS ORDERED: FAT EMULSION IV 20% 500 ML IV SCH (18:00)
[2019-08-30] MEDS ORDERED: AMINO AC/ELECTROLYTE/DEX/CALC 2,000 ML IV SCH (18:00)
[2019-08-31] VITALS (14 sets, daily range): BP systolic 128–162; BP diastolic 68–93; O2SAT 93–97
[2019-08-31] MEDS: SODIUM CHLORIDE 0.9% INJ 10 ML SYR IV SCH ×2 (05:26→17:44)
[2019-08-31] MEDS: HumaLOG INSULIN (NovoLOG) PER UNIT SC SCH ×3 (05:26→18:00)
[2019-08-31] MEDS: ENOXAPARIN 80 MG/0.8 ML SYRINGE (J1650) SC SCH ×2 (05:35→17:43)
[2019-08-31] MEDS: MEROPENEM INJ 1 GM in IV 1 EA IV SCH ×3 (05:35→21:47)
[2019-08-31 06:22] LABS: BASO % 0.4 % (0.0-1.0); EOS # 0.3 10^3/uL (0.0-0.5); HEMATOCRIT 39.5 % (36.0-47.0); HEMOGLOBIN 12.5 g/dl (12.0-15.5); LYMPH # 1.4 10^3/uL (1.5-5.0); LYMPH % 13.8 % (24.0-44.0); MEAN CORPUSCULAR HEMOGLOBIN 31.3 pg (27.0-33.0); MEAN CORPUSCULAR HGB CONC 31.6 g/dl (32.0-36.5); MONO # 0.5 10^3/uL (0.0-0.8); MONO % 4.6 % (0.0-5.0); NEUTROPHILS # 8.1 10^3/uL (1.5-8.5); NEUTROPHILS % 77.3 % (36.0-66.0); PLATELET COUNT, AUTOMATED 336 10^3/uL (150-450); RED BLOOD COUNT 3.99 10^6/uL (4.00-5.40); WHITE BLOOD COUNT 10.4 10^3/uL (4.0-10.0)
[2019-08-31 06:53] LABS: BLOOD UREA NITROGEN 17 MG/DL (7-18); CALCIUM LEVEL 8.1 MG/DL (8.8-10.2); CARBON DIOXIDE LEVEL 33 MEQ/L (21-32); CHLORIDE LEVEL 103 MEQ/L (98-107); CREATININE FOR GFR 0.58 MG/DL (0.55-1.30); GLOMERULAR FILTRATION RATE > 60.0 (>39); GLUCOSE, FASTING 95 MG/DL (70-100); SODIUM LEVEL 139 MEQ/L (136-145)
[2019-08-31] MEDS: rOPINIRole 1MG TAB PO SCH ×4 (09:13→21:47)
[2019-08-31] MEDS: SINEMET 25-100 MG TAB PO SCH ×3 (09:13→16:27)
[2019-08-31] MEDS: PANTOPRAZOLE 40MG INJ (PROTONIX) (C9113) IV SCH (09:13)
[2019-08-31] MEDS: NS 1,000 ML IV SCH (16:03)
[2019-08-31] MEDS: MORPHINE 1MG/ML IN 0.9% NACL 100ML IV BAG IV PRN (16:59)
[2019-08-31] MEDS ORDERED: MULTIVITAMIN -ADULT INJECTION 10 ML, CR/CU/SE/MN/ZN INJ 1 ML in AMINO AC/ELECTROLYTE/DE... IV SCH (18:00)
[2019-08-31] MEDS ORDERED: FAT EMULSION IV 20% 500 ML IV SCH (18:00)
[2019-08-31] MEDS: RAMELTEON 8 MG TAB (ROZEREM) PO SCH (22:38)
[2019-09-01] VITALS (7 sets, daily range): BP systolic 98–139; BP diastolic 55–85
[2019-09-01] MEDS: SODIUM CHLORIDE 0.9% INJ 10 ML SYR IV SCH (03:34)
[2019-09-01] MEDS: HumaLOG INSULIN (NovoLOG) PER UNIT SC SCH ×2 (06:00)
[2019-09-01] MEDS: ENOXAPARIN 80 MG/0.8 ML SYRINGE (J1650) SC SCH ×2 (06:09→17:01)
[2019-09-01] MEDS: MEROPENEM INJ 1 GM in IV 1 EA IV SCH ×3 (06:10→21:42)
[2019-09-01 06:44] LABS: BASO % 0.3 % (0.0-1.0); EOS # 0.4 10^3/uL (0.0-0.5); EOS % 3.5 % (0.0-3.0); HEMATOCRIT 40.6 % (36.0-47.0); LYMPH # 1.5 10^3/uL (1.5-5.0); LYMPH % 13.1 % (24.0-44.0); MEAN CORPUSCULAR HEMOGLOBIN 31.5 pg (27.0-33.0); MEAN CORPUSCULAR VOLUME 98.3 fl (80.0-96.0); MONO # 0.6 10^3/uL (0.0-0.8); NEUTROPHILS # 8.7 10^3/uL (1.5-8.5); NEUTROPHILS % 77.3 % (36.0-66.0); PLATELET COUNT, AUTOMATED 363 10^3/uL (150-450); RED BLOOD COUNT 4.13 10^6/uL (4.00-5.40); WHITE BLOOD COUNT 11.2 10^3/uL (4.0-10.0)
[2019-09-01 07:07] LABS: BLOOD UREA NITROGEN 18 MG/DL (7-18); CALCIUM LEVEL 8.6 MG/DL (8.8-10.2); CARBON DIOXIDE LEVEL 35 MEQ/L (21-32); CHLORIDE LEVEL 102 MEQ/L (98-107); CREATININE FOR GFR 0.62 MG/DL (0.55-1.30); GLOMERULAR FILTRATION RATE > 60.0 (>39); GLUCOSE, FASTING 94 MG/DL (70-100); POTASSIUM SERUM 4.1 MEQ/L (3.5-5.1); SODIUM LEVEL 141 MEQ/L (136-145)
[2019-09-01] MEDS ORDERED: MORPHINE 2 MG/ML 1ML VIAL (J2270) IV PRN (07:45)
[2019-09-01] MEDS: SODIUM CHLORIDE 0.9% INJ 10 ML SYR IV PRN ×4 (08:08→15:02)
[2019-09-01] MEDS: rOPINIRole 1MG TAB PO SCH ×4 (08:48→21:41)
[2019-09-01] MEDS: PANTOPRAZOLE 40MG INJ (PROTONIX) (C9113) IV SCH (08:48)
[2019-09-01] MEDS: SINEMET 25-100 MG TAB PO SCH ×3 (08:48→17:01)
[2019-09-01] MEDS ORDERED: MORPHINE 30 MG TAB **MSIR PO PRN (09:00)
[2019-09-01] MEDS ORDERED: MORPHINE 15 MG SA TAB PO ONE (10:15)
--- NOTE | 2019-09-01 11:25 | IPN ---
DATE OF SERVICE: 08/31/2019 Patient complains of 10/10 pain from the drainage catheter despite using morphine which allowed her to sleep. When she wakes up and tries to move around, the pain is very high. Without moving, it is 3/10. No nausea or vomiting. No fever. Patient's diarrhea has decreased to once daily. Her appetite is still diminished. She complains of pain around the right shoulder that woke her up from sleeping last night. She has a known deep venous thrombosis (DVT) on the right currently on Lovenox. No signs of bleeding. Vital signs: Temperature 98.1, pulse 93, respiratory 17, blood pressure 141/93, 96% on room air. Generally, no respiratory distress. Able to speak in full sentences. Face is symmetric. No cervical lymphadenopathy or thyromegaly. Lungs are diminished but clear. No wheezing or rales. Heart: S1, S2, sinus. Abdomen is soft, nontender, nondistended. Hyperactive bowel sounds. Patient's nasogastric tube has been removed. Extremity: No signs of clubbing or pitting edema. Right upper extremity has very tender swelling in the upper arm in the posterior aspect. She has a drainage catheter noted in the abdomen right lower quadrant. White count 10, hemoglobin 12, hematocrit 39, platelet count 336. Sodium 139, potassium 4, chloride 103, bicarbonate 32, BUN 17, creatinine 0.5, glucose of 95. Gram stain gram positive cocci in pairs, chains and clusters. Gram positive rods. ASSESSMENT AND PLAN: This is a 73-year-old female with history of Parkinson's, hyperlipidemia, restless legs, admitted on 08/22/2019 with abdominal pain, diarrhea, found on CT to have high grade small bowel obstruction, admitted to medical service, consulted general surgery. Patient was kept n.p.o., given IV fluids Cipro and Flagyl, G-tube for decompression then changed to TPN by general surgeon Dr. Isaacs. CT abdomen showed ruptured appendicitis with abscess formation. She developed worsening pain, increased white count without a fever. CT showed 6 x 7 cm fluid collection. Ultrasound confirmed findings. Patient underwent drainage catheter placement. During the hospitalization, PICC line was placed. She developed some tenderness, pain and swelling in the right upper arm in the posterior aspect, was found to have a deep venous thrombosis (DVT). CURRENT ISSUES: Ruptured appendicitis with abscess right lower quadrant due to worsening white count without fever but worsening pain. She was changed from Cipro and Flagyl to meropenem. General surgery recommended drainage catheter placement, currently waiting for the culture and sensitivity results. She has been afebrile with decreasing white count on the meropenem. Bowel obstruction, resolved status post nasogastric tube compression. Defer to surgery for further management. Still on TPN and n.p.o status. Enteropathogenic E. Coli gastroenteritis. Repeat GI panel has been sent. CT shows right lower quadrant ruptured appendicitis with abscess formation status post right drainage catheter. Right upper extremity deep venous thrombosis (DVT) with an occlusive thrombus in the distal basilic vein just above the antecubital fossa and a nonocclusive thrombus in the right brachial and subclavian vein, started on Lovenox yesterday with no signs of any bleeding at 80 mg subcu every 12. Once patient starts on oral diet, she may be switched over to Eliquis.
--- NOTE | 2019-09-01 12:04 | IPNPDOC ---
Text Note Date of Service The patient was seen on 09/01/19. NOTE No acute events overnight. Denies nausea, emesis, or fevers. Abd pain is sli ghtly improved with the drain in place, but the output has been small. No more fevers. On TPN. VSSAF NAD abd - soft, slight tender to palpation RLQ only, no rebound, drain in place with purulent output. labs below A) 73y/o female with bacteremia and ruptured appendicitis with drain placement P) reg diet ambulate drain abx await final cultures Rigoberto Rivera DO VS,Jose, I+O VS, Jose, I+O Laboratory Tests 09/01/19 06:13 Vital Signs Date Time Temp Pulse Resp B/P (MAP) Pulse Ox O2 Delivery O2 Flow Rate FiO2 09/01/19 10:42 18 09/01/19 10:00 97.8 89 125/63 (83) 99 Room Air I&O- Last 24 Hours up to 6 AM 09/01/19 06:00 Intake Total 1012 ml Output Total 150 ml Balance 862 ml ARLETTE RIVERA DO Sep 01, 2019 12:04
[2019-09-01] MEDS: NS 500 ML IV SCH ×2 (14:32→15:19)
--- NOTE | 2019-09-01 18:10 | IPN ---
DATE: 09/01/2019 The patient complained of sharp pain in the right lower quadrant. She did not drain out as much on the drainage catheter. General surgeon, Dr. Rivera, had taught the nurses this morning how to milk the catheter and purulent bloody discharge was obtained. The patient's output overnight with a drainage catheter was 15 mL. She has had one bowel movement, which was still liquidy. She has no nausea or vomiting this morning. No dry heaving. Per surgery, she may be started on liquid diet. The patient is very apprehensive of this and is quite worried that something else may happen. She is afebrile. No complaints of chills. No chest pain or shortness of breath. VITAL SIGNS: Temperature 98, pulse 90, respiratory rate 18, blood pressure 138/85, 97% on room air. GENERAL: Awake, alert, oriented. Answering questions appropriately. at the bedside. No jugular venous distention (JVD). No thyromegaly. LUNGS: Clear to auscultation. No wheezing, rales or rhonchi. HEART: S1, S2. Sinus rhythm. ABDOMEN: Soft. Tender in the right lower quadrant. No rebound. No guarding. Bloody and purulent drainage is noted in the bag. Positive bowel sounds times four quadrants. Hyperactive. EXTREMITIES: Positive trace to 1+ edema. LABORATORY DATA: White count 11.3, hemoglobin 13, hematocrit 40, platelet count 363. Sodium 141, potassium 4.1, chloride 102, bicarbonate 35, BUN 19, creatinine 0.6, glucose of 94. Microbiology: Abscess culture still pending. Anaerobic culture pending. Enteropathogenic Escherichia (E) coli gastroenteritis . IMAGING STUDIES: Have been reviewed. ASSESSMENT AND PLAN: This is a 73-year-old female with a history of Parkinson's, hyperlipidemia, restless leg syndrome, admitted on 08/22/2019 with abdominal pain and diarrhea with some nausea, found on CT to have high grade small bowel obstruction, admitted to medical service with general surgery as a consult. The patient was kept nothing by mouth and started on IV Cipro, Flagyl, and nasogastric tube for decompression and changed to TPN by surgery. CT of the abdomen showed ruptured appendicitis with abscess formation. She developed worsening right lower quadrant pain with worsening white count without fever. Repeat CT of the abdomen showed a 6 x 7 cm fluid collection, confirmed by ultrasound. The patient underwent drainage catheter placement without fevers or chills and started on a liquid diet. TPN discontinued. During this hospitalization, peripherally inserted central catheter (PICC) line was placed for TPN. She developed tenderness, pain and swelling in the right upper arm in the posterior aspect and was found to have a deep vein thrombosis (DVT) and was started on Lovenox 1 mg per kg subcutaneously every 12 hours. ACTIVE ISSUES: 1. Ruptured appendicitis with abscess in the right lower quadrant. The patient was initially on Cipro and Flagyl, currently on IV meropenem. Sensitivity results are still pending, both aerobic as well as anaerobic cultures. Currently without a fever. Nasogastric tube has been discontinued. Surgery is managing. 2. Enteropathogenic Escherichia (E) coli gastroenteritis. Currently with decreasing bowel movements. 3. Bowel obstruction, resolved with nasogastric tube. Currently on oral feedings. 4. Right upper extremity deep vein thrombosis (DVT) secondary to peripherally inserted central catheter (PICC) line placement with occlusive thrombus in distal bacillus vein just above the antecubital fossa, non occlusive thrombus right brachial and subclavian vein. Currently on Lovenox 1 mg per kg subcutaneously every 8 hours. Once the patient is ready for hospital discharge, may switch over to Eliquis twice a day and loading dose for one week and 5 mg twice a day subsequently. MTDD
[2019-09-01] MEDS: RAMELTEON 8 MG TAB (ROZEREM) PO SCH (21:41)
[2019-09-01] MEDS: MORPHINE 15 MG SA TAB PO SCH (21:42)
[2019-09-02] VITALS (7 sets, daily range): BP systolic 108–152; BP diastolic 63–82
[2019-09-02] MEDS: MEROPENEM INJ 1 GM in IV 1 EA IV SCH (05:45)
[2019-09-02] MEDS: ENOXAPARIN 80 MG/0.8 ML SYRINGE (J1650) SC SCH (05:45)
[2019-09-02 06:38] LABS: BASO # 0.1 10^3/uL (0.0-0.2); BASO % 0.6 % (0.0-1.0); EOS # 0.4 10^3/uL (0.0-0.5); EOS % 4.3 % (0.0-3.0); HEMATOCRIT 37.7 % (36.0-47.0); HEMOGLOBIN 11.9 g/dl (12.0-15.5); LYMPH # 1.5 10^3/uL (1.5-5.0); LYMPH % 18.2 % (24.0-44.0); MEAN CORPUSCULAR HEMOGLOBIN 31.1 pg (27.0-33.0); MEAN CORPUSCULAR HGB CONC 31.6 g/dl (32.0-36.5); MEAN CORPUSCULAR VOLUME 98.4 fl (80.0-96.0); MONO # 0.6 10^3/uL (0.0-0.8); MONO % 7.4 % (0.0-5.0); NEUTROPHILS # 5.6 10^3/uL (1.5-8.5); NEUTROPHILS % 68.9 % (36.0-66.0); PLATELET COUNT, AUTOMATED 339 10^3/uL (150-450); RED BLOOD COUNT 3.83 10^6/uL (4.00-5.40); WHITE BLOOD COUNT 8.1 10^3/uL (4.0-10.0)
[2019-09-02 07:08] LABS: BLOOD UREA NITROGEN 20 MG/DL (7-18); CALCIUM LEVEL 8.4 MG/DL (8.8-10.2); CARBON DIOXIDE LEVEL 30 MEQ/L (21-32); CHLORIDE LEVEL 103 MEQ/L (98-107); CREATININE FOR GFR 0.59 MG/DL (0.55-1.30); GLOMERULAR FILTRATION RATE > 60.0 (>39); GLUCOSE, FASTING 85 MG/DL (70-100); POTASSIUM SERUM 4.3 MEQ/L (3.5-5.1); SODIUM LEVEL 138 MEQ/L (136-145)
[2019-09-02] MEDS: rOPINIRole 1MG TAB PO SCH ×4 (07:52→20:47)
[2019-09-02] MEDS: SINEMET 25-100 MG TAB PO SCH ×3 (07:52→16:36)
[2019-09-02] MEDS: PANTOPRAZOLE 40MG INJ (PROTONIX) (C9113) IV SCH (07:54)
[2019-09-02] MEDS: MORPHINE 15 MG SA TAB PO SCH ×2 (07:54→20:46)
[2019-09-02] MEDS: LevoFLOXacin 750 MG TABLET PO SCH (09:17)
--- NOTE | 2019-09-02 11:54 | IPNPDOC ---
Text Note Date of Service The patient was seen on 09/02/19. NOTE No acute events overnight. Denies nausea, emesis, or fevers. Abd pain is sli ghtly improved and drain output has been small. No more fevers. Tolerating diet, but she still feels veery weak. VSSAF NAD abd - soft, slight tender to palpation RLQ only, no rebound, drain in place with purulent output. labs below A) 73y/o female with bacteremia and ruptured appendicitis with drain placement P) reg diet ambulate drain abx await final cultures Rigoberto Rivera DO VS,Jose, I+O VS, Jose, I+O Laboratory Tests 09/02/19 05:49 Vital Signs Date Time Temp Pulse Resp B/P (MAP) Pulse Ox O2 Delivery O2 Flow Rate FiO2 09/02/19 10:00 97.8 75 18 108/63 (78) 95 Room Air I&O- Last 24 Hours up to 6 AM 09/02/19 06:00 Intake Total 1917.5 ml Output Total 170 ml Balance 1747.5 ml ARLETTE RIVERA DO Sep 02, 2019 11:54
[2019-09-02] MEDS: RAMELTEON 8 MG TAB (ROZEREM) PO SCH (20:45)
[2019-09-02] MEDS: APIXABAN 5 MG TAB (ELIQUIS) PO SCH (20:47)
[2019-09-03] MEDS ORDERED: PINK BISMUTH SUSP 524MG/30ML ORAL SYRINGE PO ONE (01:00)
[2019-09-03] MEDS: LevoFLOXacin 750 MG TABLET PO SCH (05:15)
[2019-09-03 05:53] LABS: APPEARANCE, URINE CLEAR (CLEAR); BACTERIA, URINE AUTO NEGATIVE (NEGATIVE); BILIRUBIN, URINE AUTO NEGATIVE (NEGATIVE); BLOOD, URINE BLOOD 1+ (NEGATIVE); COLOR, URINE STRAW (YELLOW); GLUCOSE, URINE (UA) AUTO NEGATIVE (NEGATIVE); KETONE, URINE AUTO TRACE mg/dL (NEGATIVE); LEUKOCYTE ESTERASE, URINE AUTO NEGATIVE (NEGATIVE); NITRITE, URINE AUTO NEGATIVE (NEGATIVE); PROTEIN, URINE AUTO NEGATIVE (NEGATIVE); RBC, URINE AUTO 2 /HPF (0-3); SPECIFIC GRAVITY URINE AUTO 1.006 (1.002-1.035); SQUAMOUS EPITHELIAL CELL UR AU 0 /HPF (0-6); TRANSITIONAL EPITHELIAL AUTO <1 /HPF; UROBILINOGEN, URINE AUTO 0.2 mg/dL (0.0-2.0); WBC, URINE AUTO 1 /HPF (0-3)
[2019-09-03 06:00] VITALS: BP 138/67
[2019-09-03 07:50] LABS: BASO % 0.3 % (0.0-1.0); EOS # 0.2 10^3/uL (0.0-0.5); HEMATOCRIT 39.1 % (36.0-47.0); HEMOGLOBIN 12.4 g/dl (12.0-15.5); MEAN CORPUSCULAR HEMOGLOBIN 31.4 pg (27.0-33.0); MEAN CORPUSCULAR HGB CONC 31.7 g/dl (32.0-36.5); MONO # 0.7 10^3/uL (0.0-0.8); MONO % 6.7 % (0.0-5.0); NEUTROPHILS % 79.9 % (36.0-66.0); PLATELET COUNT, AUTOMATED 377 10^3/uL (150-450); RED BLOOD COUNT 3.95 10^6/uL (4.00-5.40)
[2019-09-03 08:15] LABS: BLOOD UREA NITROGEN 16 MG/DL (7-18); CARBON DIOXIDE LEVEL 33 MEQ/L (21-32); CHLORIDE LEVEL 101 MEQ/L (98-107); CREATININE FOR GFR 0.76 MG/DL (0.55-1.30); GLOMERULAR FILTRATION RATE > 60.0 (>39); GLUCOSE, FASTING 93 MG/DL (70-100); POTASSIUM SERUM 4.2 MEQ/L (3.5-5.1); SODIUM LEVEL 137 MEQ/L (136-145)
[2019-09-03] MEDS: MORPHINE 15 MG SA TAB PO SCH ×2 (08:56→21:18)
[2019-09-03] MEDS: rOPINIRole 1MG TAB PO SCH ×4 (08:56→21:19)
[2019-09-03] MEDS: SINEMET 25-100 MG TAB PO SCH ×3 (08:56→17:13)
[2019-09-03] MEDS: APIXABAN 5 MG TAB (ELIQUIS) PO SCH ×2 (08:56→21:18)
[2019-09-03] MEDS: PANTOPRAZOLE 40MG INJ (PROTONIX) (C9113) IV SCH (08:57)
[2019-09-03 10:00] VITALS: BP 132/81
[2019-09-03 14:00] VITALS: BP 118/76
--- NOTE | 2019-09-03 15:16 | IPN ---
DATE: 09/03/2019 The patient complains of pain in the right upper extremity and upper arm where her deep vein thrombosis (DVT) is located, not really alleviated with warm compresses. Currently on IV morphine for breakthrough pain and oral morphine for pain relief. The patient is tolerating her diet well without nausea or vomiting. Very minimal output through the drain, about 5 mL last evening. She has had one bowel movement today. Afebrile. No fever or chills. PHYSICAL EXAMINATION: VITAL SIGNS: Temperature 98.1, pulse 102, respiratory rate 20, blood pressure 132/81, 93% on room air. GENERAL: Awake, alert, oriented to person, place and time. No jugular venous distention (JVD). No thyromegaly. Moist mucous membranes. LUNGS: Clear to auscultation. No wheezing or rales. HEART: S1, S2. Sinus rhythm. No murmurs, rubs or gallops. ABDOMEN: Soft, slightly tender in the right lower quadrant. No rebound or guarding. Drainage catheter noted with some purulent drainage, very minimal. EXTREMITIES: Chronic edema in lower extremities. Right upper extremity with some edema and tenderness in the upper arm, posterior aspect. LABORATORY DATA: White count 10, hemoglobin 12, hematocrit 39, platelet count 377, sodium 137, potassium 4.2, chloride 101, bicarbonate 33, BUN 16, creatinine 0.76, glucose of 93. CURRENT MEDICATIONS: - apixaban 5 mg twice a day after 7 day loading dose of 10 mg twice a day - Levaquin 750 mg daily - morphine 15 mg twice a day, controlled release - MS IR 15 mg every four hours as needed for severe pain - morphine sulfate 2 mg IV every 15 minutes for severe pain - Rozerem 8 mg at night - Protonix 40 mg daily - Requip 3 mg before food and nightly - levodopa carbidopa one tablet three times a day - Zofran as needed LABORATORY DATA/IMAGING STUDIES/MICROBIOLOGY: All have been reviewed. ASSESSMENT AND PLAN: This is a 73-year-old female who presented to the emergency room with complaints of nausea, diarrhea, abdominal pain, found to have a high grade small bowel obstruction, admitted to medical service. General surgery was consulted. The patient was kept nothing by mouth and started on IV Cipro and Flagyl, nasogastric tube for decompression, change to TPN with surgery via peripherally inserted central catheter (PICC) line. THe patient was found on CT of the abdomen to have ruptured appendicitis with abscess formation with worsening right lower quadrant pain and worsening white count without fever. Repeat CT shows persistent 7 x 6 cm fluid collection, confirmed by ultrasound. The patient underwent drainage catheter without fever or chills and started on meropenem and Cipro and Flagyl were discontinued. The patient had significant improvement on Meropenem and was transitioned to Levaquin once the abscess results were obtained. She was in severe pain in the right upper arm and found to have a deep vein thrombosis (DVT) and currently on Eliquis, previously on Lovenox, no overt signs of bleeding at the drainage catheter site. CURRENT ISSUES: 1. Ruptured appendicitis with abscess in the right lower quadrant. Initially on Cipro and Flagyl, which were changed to meropenem when the patient had increasing pain and increased white count, currently on Levaquin according to abscess results. 2. High grade bowel obstruction, resolved with nasogastric tube decompression. Currently tolerating oral feedings. 3. Enteropathogenic Escherichia (E) coli gastroenteritis. No recurrent diarrhea. 4. Deep vein thrombosis (DVT) in the right upper extremity. Peripherally inserted central catheter (PICC) line placement with occlusive thrombus in distal basilic vein above the antecubital fossa. Nonocclusive thrombus in brachial and subclavian vein, status post Lovenox but no signs of bleeding through the drainage catheter and transitioned to Eliquis 10 mg twice a day for 7 days and then 5 mg twice a day subsequently. The patient is awaiting good pain control and physical therapy (PT) prior to discharge home. ABDON
[2019-09-03 18:00] VITALS: BP 121/75
--- NOTE | 2019-09-03 18:57 | IPN ---
DATE: 09/02/2019 The patient has had no fever, no chills, tolerating her diet. She has no nausea or vomiting. Complains of right upper arm pain secondary to deep vein thrombosis (DVT), improved with the morphine. The patient has been increasingly sedated, but states that she needs to sleep, says she has not had much rest for the past two days. No hematuria through the catheter overnight. Output was 20 mL. The patient has been very weak and uses a walker as she goes from bed to the commode. Has ambulate to the bathroom, but requiring some help. Temperature 97.8, pulse75, respiratory rate 18, blood pressure 108/63, 95% on room air. Generally, the patient is awake, alert, oriented to place and time. Answers questions appropriately. at the bedside. No jugular venous distension (JVD), no thyromegaly. No cervical lymphadenopathy. Moist mucous membranes. Lungs diminished, but clear. No wheezes, rales or rhonchi. Heart: S1, S2 sinus rhythm. Abdomen: Soft. Tender in right lower quadrant. No rebound, guarding. There is some purulence left over in the bag but very minimal. Positive bowel sounds throughout four lower quadrant. Extremities: Trace lower extremity edema. The patient has right upper arm swelling, slightly tender. LABORATORY DATA: White count 8, hemoglobin 11, hematocrit 37, platelet count 339. Sodium 138, potassium 4, chloride 103, bicarbonate 30, BUN 20, creatinine 0.59, glucose of 85. Abscess culture: Enterobacter, Streptococcus anginosus sensitive to Levaquin. ASSESSMENT AND PLAN: 73-year-old female with history of Parkinson's, dyslipidemia and restless legs, admitted 08/22 with abdominal pain, diarrhea and nausea. Found on CT to have high grade obstruction admitted to medical service with general surgery as consult. The patient is kept nothing by mouth, given IV Cipro, Flagyl and nasogastric tube for decompression, changed to total parenteral nutrition (TPN) by surgery. CT abdomen showed ruptured appendicitis with abscess formation, developed worsening right lower quadrant pain, worsening white count without fever. Repeat CT shows similar findings. Ultrasound confirmed. The patient underwent drainage catheter placement, started on IV meropenem. The patient was on TPN, but recently discontinued. Currently, tolerating oral diet. She continues to complain of tenderness and pain rating this at 5-1/2 to 3/10 pain, currently on Lovenox, transitioned to Eliquis. Ruptured appendicitis with abscess in the right lower quadrant. The patient was initially on Cipro and Flagyl, changed to IV meropenem when she decompensated clinically. Sensitivity results shows sensitivity to Levaquin, which she will be given today and nasogastric tube has been discontinued. Currently, tolerating her oral diet, which has been advanced. Enteropathogenic Escherichia (E) coli gastroenteritis with decreased bowel movements, still soft. Bowel obstruction resolved with nasogastric tube, currently on oral feedings. Right upper extremity deep vein thrombosis (DVT), secondary to percutaneous indwelling central catheter (PICC) placement with occlusive thrombus to bacillus vein above the antecubital fossa, not inclusive in the right brachial or subclavian, was on Lovenox, now transitioned to Eliquis now that she is able to take an oral diet. Physical therapy (PT), occupational therapy and monitor for any signs of bleeding. [facility]
[2019-09-03] MEDS: RAMELTEON 8 MG TAB (ROZEREM) PO SCH (21:18)
[2019-09-03 22:00] VITALS: BP 143/74
[2019-09-04 03:00] VITALS: BP 126/75
[2019-09-04] MEDS: LevoFLOXacin 750 MG TABLET PO SCH (05:00)
[2019-09-04 06:00] VITALS: BP 128/76
[2019-09-04 06:37] LABS: BASO % 0.4 % (0.0-1.0); EOS # 0.1 10^3/uL (0.0-0.5); EOS % 1.4 % (0.0-3.0); HEMOGLOBIN 11.7 g/dl (12.0-15.5); LYMPH # 1.2 10^3/uL (1.5-5.0); LYMPH % 13.9 % (24.0-44.0); MEAN CORPUSCULAR HEMOGLOBIN 31.7 pg (27.0-33.0); MEAN CORPUSCULAR HGB CONC 31.6 g/dl (32.0-36.5); MEAN CORPUSCULAR VOLUME 100.3 fl (80.0-96.0); MONO # 0.6 10^3/uL (0.0-0.8); MONO % 7.2 % (0.0-5.0); NEUTROPHILS # 6.4 10^3/uL (1.5-8.5); NEUTROPHILS % 76.6 % (36.0-66.0); PLATELET COUNT, AUTOMATED 363 10^3/uL (150-450); RED BLOOD COUNT 3.69 10^6/uL (4.00-5.40); WHITE BLOOD COUNT 8.3 10^3/uL (4.0-10.0)
[2019-09-04 06:55] LABS: BLOOD UREA NITROGEN 12 MG/DL (7-18); CALCIUM LEVEL 8.6 MG/DL (8.8-10.2); CARBON DIOXIDE LEVEL 34 MEQ/L (21-32); CHLORIDE LEVEL 100 MEQ/L (98-107); CREATININE FOR GFR 0.77 MG/DL (0.55-1.30); GLOMERULAR FILTRATION RATE > 60.0 (>39); GLUCOSE, FASTING 87 MG/DL (70-100); POTASSIUM SERUM 4.2 MEQ/L (3.5-5.1); SODIUM LEVEL 137 MEQ/L (136-145)
[2019-09-04] MEDS: MORPHINE 15 MG SA TAB PO SCH ×3 (09:00→20:55)
[2019-09-04] MEDS: PANTOPRAZOLE 40MG INJ (PROTONIX) (C9113) IV SCH (09:29)
[2019-09-04] MEDS: rOPINIRole 1MG TAB PO SCH ×4 (09:29→20:50)
[2019-09-04] MEDS: APIXABAN 5 MG TAB (ELIQUIS) PO SCH ×2 (09:29→20:50)
[2019-09-04] MEDS: SINEMET 25-100 MG TAB PO SCH ×3 (09:29→16:17)
[2019-09-04 10:00] VITALS: BP 124/66
[2019-09-04 14:00] VITALS: BP 109/65
[2019-09-04 18:00] VITALS: BP 122/66
[2019-09-04] MEDS: RAMELTEON 8 MG TAB (ROZEREM) PO SCH (20:50)
[2019-09-04 22:00] VITALS: BP 128/74
[2019-09-05 02:00] VITALS: BP 126/75
[2019-09-05] MEDS: LevoFLOXacin 750 MG TABLET PO SCH (05:45)
[2019-09-05 06:00] VITALS: BP 125/75
[2019-09-05 06:25] LABS: BASO % 0.4 % (0.0-1.0); EOS # 0.1 10^3/uL (0.0-0.5); EOS % 0.8 % (0.0-3.0); HEMATOCRIT 37.4 % (36.0-47.0); HEMOGLOBIN 11.9 g/dl (12.0-15.5); LYMPH # 1.3 10^3/uL (1.5-5.0); LYMPH % 13.5 % (24.0-44.0); MEAN CORPUSCULAR HEMOGLOBIN 31.3 pg (27.0-33.0); MEAN CORPUSCULAR HGB CONC 31.8 g/dl (32.0-36.5); MEAN CORPUSCULAR VOLUME 98.4 fl (80.0-96.0); MONO # 0.8 10^3/uL (0.0-0.8); MONO % 8.4 % (0.0-5.0); NEUTROPHILS # 7.6 10^3/uL (1.5-8.5); NEUTROPHILS % 76.6 % (36.0-66.0); PLATELET COUNT, AUTOMATED 412 10^3/uL (150-450); WHITE BLOOD COUNT 9.9 10^3/uL (4.0-10.0)
[2019-09-05 06:49] LABS: BLOOD UREA NITROGEN 16 MG/DL (7-18); CALCIUM LEVEL 8.8 MG/DL (8.8-10.2); CARBON DIOXIDE LEVEL 33 MEQ/L (21-32); CHLORIDE LEVEL 105 MEQ/L (98-107); CREATININE FOR GFR 0.78 MG/DL (0.55-1.30); GLOMERULAR FILTRATION RATE > 60.0 (>39); GLUCOSE, FASTING 89 MG/DL (70-100); POTASSIUM SERUM 3.9 MEQ/L (3.5-5.1); SODIUM LEVEL 140 MEQ/L (136-145)
[2019-09-05] MEDS ORDERED: PERCOCET 5MG/325MG TAB PO PRN ×2 (07:00)
[2019-09-05] MEDS ORDERED: FUROSEMIDE 40 MG/4 ML VIAL (J1940) IV ONE (08:00)
[2019-09-05] MEDS: rOPINIRole 1MG TAB PO SCH ×4 (08:00→20:58)
[2019-09-05] MEDS: SINEMET 25-100 MG TAB PO SCH ×3 (08:00→16:29)
[2019-09-05] MEDS: APIXABAN 5 MG TAB (ELIQUIS) PO SCH ×2 (08:00→20:58)
[2019-09-05] MEDS: PANTOPRAZOLE 40MG INJ (PROTONIX) (C9113) IV SCH (08:00)
[2019-09-05 10:00] VITALS: BP 92/64
--- NOTE | 2019-09-05 10:16 | IPN ---
DATE: The patient has made some additional improvement. I have seen her around the hallway walking around and more importantly her white count is still down, she has been afebrile and she is not complaining of any significant abdominal pain. Her major issue is fatigue and just really slow to make some progress, although she states she is doing better today than she was yesterday. On physical exam, her abdomen is soft, nontender and nondistended. IMPRESSION AND PLAN: The patient seems to be making some good slow progress after drainage of the right abdominal wall/pelvic abscess. At this point, I do feel that we could take out this drain today and will see how she does, but I anticipate her major issue now is rehabilitation/activity and after discussion with the family and the patient they feel that another couple of days would probably be enough to get her ready to be discharged home.
--- NOTE | 2019-09-05 10:28 | IPN ---
DATE: 09/05/2019 The patient continues to make some slow, but progressive improvements. Overall eating a little bit better and moving a little bit better. Her family is with her here today and seem to see some slow but progressive improvement overall. As I had talked to her a couple of days ago about her current issue is a rehabilitation/activity issue. She feels that she should be ready for discharge tomorrow and we will see how she is doing, but I feel that this probably a reasonable thing to do. From her standpoint, her seems to be with her at all times and supportive in this issue, will plan on discharge home tomorrow. From the standpoint of otherwise, she seems to be diuresing well from an additional dose of Lasix from some mild edema in her lower extremities. Otherwise, I feel like she is making some good progress and we will probably discharge her home tomorrow morning unless she has some other issues that creep up at this time.
--- NOTE | 2019-09-05 10:31 | IPN ---
DATE: 09/03/2019 The patient overall had a good weekend and has not had much for BRETT drainage. Still very frail and yesterday her BRETT drainage was 5 mL. She is not having any nausea or vomiting. She is just so weak that she has not been eating well and has been nibbling on foods. She still has had some soft bowel movements and had good urine output. PHYSICAL EXAMINATION: Her on physical exam abdomen is soft, nontender, nondistended, continues being afebrile and her white count is 10. IMPRESSION AND PLAN: The patient has made some good progress over the weekend and at this point her to drain seems to be putting out less she has less distension and she is making some good with good improvement overall. Will see how she does over the next couple days. And possibly remove her drain tomorrow as long as white count stays down. And I anticipate given the amount of infection that was present. She may benefit from some home on by mouth antibiotics for 5-7 days in addition after discharge will see how she does over the next couple days, however.
--- NOTE | 2019-09-05 13:17 | IPNPDOC ---
Text Note Date of Service The patient was seen on 09/04/19. NOTE SUBJECTIVE: Slowly getting better, says took a shower today and feels good t charity tired out after it. Working with PT. Abdominal pain much better, tolerating oral diet. Complains of leg swelling and difficulty in putting on shoes. VITALS: As below. General, the patient is awake, alert, oriented to place and time. Answers questions appropriately. NECK: No jugular venous distension (JVD), no thyromegaly. No cervical lymphadenopathy. Moist mucous membranes. Lungs diminished, but clear. No wheezes, rales or rhonchi. Heart: S1, S2 sinus rhythm. No rub, murmur or gallop Abdomen: Soft. Tender in right lower quadrant. No rebound, guarding. Drain site clean Positive bowel sounds throughout four lower quadrant. Extremities: 1+ bipedal edema The patient has right upper arm swelling, slightly tender. LABORATORY DATA: Reviewed as below. ASSESSMENT AND PLAN: 73-year-old female with history of Parkinson's, dyslipidemia and restless legs, admitted 08/22 with abdominal pain, diarrhea and nausea. Found on CT to have high grade obstruction. Her stool was positive for Enteropathogenic Ecoli and she was initially thought to have a gastroenteritis. however CT abdomen showed ruptured appendicitis with abscess formation. On 08/27/19 she decompensated and went in Afib with RVR developed worsening right lower quadrant pain, worsening white count without fever. Repeat CT shows similar findings. Ultrasound confirmed. The patient underwent drainage catheter placement, started on IV meropenem. The patient was on TPN, but recently discontinued. Currently, tolerating oral diet. She developed PICC line related upper extremity DVT also. Ruptured appendicitis with abscess in the right lower quadrant. S/p IR drainage was on cipro flagyl then meropenem now on levofloxacin. Enteropathogenic Escherichia (E) coli gastroenteritis with decreased bowel movements, still soft. S/p Bowel obstruction resolved with nasogastric tube, currently on oral feedings. Right upper extremity deep vein thrombosis (DVT), secondary to percutaneous indwelling central catheter (PICC) placement with occlusive thrombus to bacillus vein above the antecubital fossa, not inclusive in the right brachial or subclavian, was on Lovenox, now transitioned to Eliquis now that she is able to take an oral diet. Afib with rvr resolved. on eliquis. Parkinson's disease. Continue with Sinemet at current doses. Hyperlipidemia. will restart on discharge Restless leg syndrome. Continue with Requip, apparently takes it at 3 mg before meals and at bedtime. H/o TIA continue home meds. GI prophylaxis in place. VS,Fishbone, I+O VS, Fishbone, I+O Laboratory Tests 09/04/19 05:50 Vital Signs Date Time Temp Pulse Resp B/P (MAP) Pulse Ox O2 Delivery O2 Flow Rate FiO2 09/04/19 10:00 98.6 95 17 124/66 (85) 96 Room Air I&O- Last 24 Hours up to 6 AM 09/04/19 06:00 Intake Total 1000 ml Output Total 1250 ml Balance -250 ml KEVIN HARDY MD Sep 04, 2019 12:37
[2019-09-05 13:52] VITALS: BP 117/73
[2019-09-05 18:00] VITALS: BP 115/68
[2019-09-05] MEDS: RAMELTEON 8 MG TAB (ROZEREM) PO SCH (20:57)
[2019-09-05 22:00] VITALS: BP 140/69
[2019-09-06 02:00] VITALS: BP 128/73
[2019-09-06 06:00] VITALS: BP 134/74
[2019-09-06] MEDS ORDERED: SIMETHICONE 80 MG CHEW TAB PO PRN (06:30)
[2019-09-06] MEDS: rOPINIRole 1MG TAB PO SCH (06:40)
[2019-09-06] MEDS: LevoFLOXacin 750 MG TABLET PO SCH (06:41)
[2019-09-06] MEDS: PANTOPRAZOLE 40MG INJ (PROTONIX) (C9113) IV SCH (08:08)
[2019-09-06] MEDS: APIXABAN 5 MG TAB (ELIQUIS) PO SCH (08:08)
[2019-09-06] MEDS: SINEMET 25-100 MG TAB PO SCH (08:08)
[2019-09-06] MEDS ORDERED: LEVA1TAB2 PO (08:41)
[2019-09-06] MEDS ORDERED: ELIQ5TAB PO (09:11)
[2019-09-06] MEDS ORDERED: LASI40TA9 PO (09:11)
[2019-09-09] MEDS ORDERED: APIXABAN 5 MG TAB (ELIQUIS) PO SCH (21:00)
== END 2019-09-06 11:02 | disposition home or self-care (01) | DRG 371 ==
LOC: M ED 07:36 → M ED INP 07:37 → M MSPAV 17:40 → OBSVTOIN 08-26 11:17 → M PCU 08-27 11:38 → M MSPAV 08-31 14:22
PROVIDERS: ADMIT Surgery; ATTEND Internal Medicine Nephrology
PROC: 3E0436Z Introduction of Nutritional Substance into Central Vein, Percutaneous Approach (ICD-10-PCS; 2019-08-27)
PROC: 02HV33Z Insertion of Infusion Device into Superior Vena Cava, Percutaneous Approach (ICD-10-PCS; principal; 2019-08-27 14:00)
PROC: 0W9G30Z Drainage of Peritoneal Cavity with Drainage Device, Percutaneous Approach (ICD-10-PCS; 2019-08-30)
DX: A04.4 Other intestinal Escherichia coli infections (principal); K35.32 Acute appendicitis with perforation, localized peritonitis, and gangrene, without abscess; K56.600 Partial intestinal obstruction, unspecified as to cause; I82.611 Acute embolism and thrombosis of superficial veins of right upper extremity; G20 Parkinson's disease; E87.6 Hypokalemia; E53.8 Deficiency of other specified B group vitamins; E78.5 Hyperlipidemia, unspecified; G25.81 Restless legs syndrome; Z79.82 Long term (current) use of aspirin; Z79.02 Long term (current) use of antithrombotics/antiplatelets; Z79.899 Other long term (current) drug therapy; Z86.73 Personal history of transient ischemic attack (TIA), and cerebral infarction without residual deficits

== ENCOUNTER 2022-07-10 09:36 | Observation (INO) | payer MEDICARE, OTHER, BC ==
[~2022-07-10] VITALS: Ht 170.2 cm; Wt 66.4 kg
[~2022-07-10 09:36] MED LIST: ALEV220T22 PO; ASPI81TA86 PO; ATOR1TAB21 PO; CARB10TA6 PO; CARB25TA9 PO; CVS2500C PO; ELIQ5TAB PO; GABA-282 PO; GNP99TAB3 PO; LASI40TA9 PO; LEVA1TAB2 PO; MAGN1CAP PO; OCUV1CAP4 PO; PLAV1TAB2 PO; POTA1TAB14 PO; ROPI3TAB3 PO; VITA-122 PO
[2022-07-10] MEDS ORDERED: MELA10CA6 PO (09:52)
[2022-07-10] MEDS ORDERED: RYTA1CAP3 PO (09:52)
[2022-07-10] MEDS ORDERED: PROB250C PO (09:52)
[2022-07-10] MEDS ORDERED: REFR0.5D8 OU (09:52)
[2022-07-10] MEDS ORDERED: AMLO1TAB24 PO (09:52)
[2022-07-10] MEDS ORDERED: NS 500 ML IV ONE ×2 (10:00→14:10)
[2022-07-10 11:37] LABS: BASO % 0.2 % (0.0-1.0); EOS # 0.1 10^3/uL (0.0-0.5); EOS % 0.4 % (0.0-3.0); HEMATOCRIT 40.3 % (36.0-47.0); HEMOGLOBIN 13.1 g/dl (12.0-15.5); LYMPH # 1.5 10^3/uL (1.5-5.0); LYMPH % 11.2 % (24.0-44.0); MEAN CORPUSCULAR HEMOGLOBIN 31.9 pg (27.0-33.0); MEAN CORPUSCULAR HGB CONC 32.5 g/dl (32.0-36.5); MEAN CORPUSCULAR VOLUME 98.1 fl (80.0-96.0); MONO # 0.5 10^3/uL (0.0-0.8); MONO % 4.2 % (2.0-8.0); NEUTROPHILS # 10.9 10^3/uL (1.5-8.5); NEUTROPHILS % 83.7 % (36.0-66.0); PLATELET COUNT, AUTOMATED 196 10^3/uL (150-450); RED BLOOD COUNT 4.11 10^6/uL (4.00-5.40)
[2022-07-10 11:46] LABS: INR 1.13; PROTHROMBIN TIME 14.9 SECONDS (12.7-14.5)
[2022-07-10 11:47] LABS: PARTIAL THROMBOPLASTIN TIME 35.7 SECONDS (25.9-37.0)
[2022-07-10] MEDS ORDERED: ISOVUE-370 76% 100ML VIAL As Ordered ONE (12:02)
[2022-07-10 12:09] LABS: ALBUMIN 3.8 GM/DL (3.2-5.2); BILIRUBIN,DIRECT 0.4 MG/DL (0.0-0.2); BILIRUBIN,TOTAL 2.2 MG/DL (0.2-1.0); TOTAL PROTEIN 6.9 GM/DL (6.4-8.2)
[2022-07-10 12:10] LABS: RSV AMPLIFICATION NEGATIVE (NEGATIVE)
[2022-07-10] MEDS ORDERED: NS 1,000 ML IV ONE (13:25)
[2022-07-10] MEDS: NS 1,000 ML IV SCH (15:16)
[2022-07-10] MEDS: CIPROFLOXACIN 400 MG in IV 1 EA IV SCH (16:43)
[2022-07-10] MEDS: metroNIDAZOLE 500 MG in IV 1 EA IV SCH (17:35)
[2022-07-10] MEDS ORDERED: MAGN400T35 PO (17:54)
[2022-07-10] MEDS ORDERED: VITA100093 PO (17:54)
[2022-07-10] MEDS ORDERED: ELIQ5TAB PO (17:54)
[2022-07-10] MEDS ORDERED: HOME MED LIST COMPLETE! XX SCH (17:55)
[2022-07-10] MEDS: PREPARATION H SUPP (HEMORRHOID) PR SCH (20:53)
[2022-07-10] MEDS ORDERED: PANTOPRAZOLE 40MG VIAL IV SCH (21:00)
[2022-07-11] MEDS: metroNIDAZOLE 500 MG in IV 1 EA IV SCH ×3 (00:57→17:05)
[2022-07-11] MEDS: NS 1,000 ML IV SCH (02:05)
[2022-07-11 02:15] VITALS: BP 118/68
[2022-07-11] MEDS: CIPROFLOXACIN 400 MG in IV 1 EA IV SCH ×2 (03:23→15:18)
[2022-07-11 05:34] VITALS: BP 120/65
[2022-07-11 07:14] LABS: HEMATOCRIT 40.7 % (36.0-47.0); HEMOGLOBIN 13.3 g/dl (12.0-15.5); MEAN CORPUSCULAR HEMOGLOBIN 32.2 pg (27.0-33.0); MEAN CORPUSCULAR HGB CONC 32.7 g/dl (32.0-36.5); MEAN CORPUSCULAR VOLUME 98.5 fl (80.0-96.0); PLATELET COUNT, AUTOMATED 177 10^3/uL (150-450); RED BLOOD COUNT 4.13 10^6/uL (4.00-5.40)
[2022-07-11 08:00] LABS: ALBUMIN 3.5 GM/DL (3.2-5.2); ALT/SGPT 7 U/L (12-78); BILIRUBIN,TOTAL 2.5 MG/DL (0.2-1.0); BLOOD UREA NITROGEN 16 MG/DL (7-18); CALCIUM LEVEL 8.5 MG/DL (8.8-10.2); CARBON DIOXIDE LEVEL 28 MEQ/L (21-32); CHLORIDE LEVEL 107 MEQ/L (98-107); CREATININE FOR GFR 0.68 MG/DL (0.55-1.30); GLOMERULAR FILTRATION RATE > 60.0 (>39); GLUCOSE, FASTING 87 MG/DL (70-100); POTASSIUM SERUM 3.4 MEQ/L (3.5-5.1); SODIUM LEVEL 138 MEQ/L (136-145); TOTAL PROTEIN 6.9 GM/DL (6.4-8.2)
[2022-07-11] MEDS ORDERED: POTASSIUM CHLORIDE 10MEQ SR TABLET PO ONE (08:40)
[2022-07-11] MEDS ORDERED: rOPINIRole 1MG TAB PO PRN (08:45)
[2022-07-11] MEDS: PREPARATION H SUPP (HEMORRHOID) PR SCH ×3 (09:00→21:00)
[2022-07-11] MEDS: LACTOBACILLUS ACIDOPHILUS CAP (BACID) PO SCH ×2 (10:58→18:51)
[2022-07-11] MEDS: rOPINIRole 1MG TAB PO SCH ×2 (10:59→21:44)
[2022-07-11] MEDS: PANTOPRAZOLE 40MG TAB (PROTONIX) PO SCH (10:59)
[2022-07-11] MEDS ORDERED: RYTA1CAP3 PO (11:48)
[2022-07-11 14:00] VITALS: BP 132/75
[2022-07-11] MEDS: RYTARY PO SCH ×2 (15:18→18:51)
[2022-07-11] MEDS ORDERED: METR-265 PO (17:37)
[2022-07-11] MEDS ORDERED: HEMO1SUP10 PR (17:37)
[2022-07-11] MEDS ORDERED: CIPR250T3 PO (17:37)
[2022-07-11 20:08] VITALS: BP 138/76
[2022-07-11] MEDS ORDERED: GABAPENTIN 300 MG CAP PO SCH (21:00)
[2022-07-11] MEDS ORDERED: MAGNESIUM OXIDE 400MG TAB (MAG-OX) PO SCH (21:00)
[2022-07-12] MEDS: metroNIDAZOLE 500 MG in IV 1 EA IV SCH ×2 (01:59→08:16)
[2022-07-12] MEDS: CIPROFLOXACIN 400 MG in IV 1 EA IV SCH (03:24)
[2022-07-12 05:32] VITALS: BP 132/78
[2022-07-12 05:37] VITALS: BP 94/61
[2022-07-12] MEDS: RYTARY PO SCH (06:11)
[2022-07-12 07:20] LABS: HEMATOCRIT 36.8 % (36.0-47.0); HEMOGLOBIN 11.9 g/dl (12.0-15.5); MEAN CORPUSCULAR HEMOGLOBIN 32.7 pg (27.0-33.0); MEAN CORPUSCULAR HGB CONC 32.3 g/dl (32.0-36.5); MEAN CORPUSCULAR VOLUME 101.1 fl (80.0-96.0); PLATELET COUNT, AUTOMATED 152 10^3/uL (150-450); RED BLOOD COUNT 3.64 10^6/uL (4.00-5.40); WHITE BLOOD COUNT 8.8 10^3/uL (4.0-10.0)
[2022-07-12 07:54] LABS: ALT/SGPT < 6 U/L (12-78); BILIRUBIN,TOTAL 1.5 MG/DL (0.2-1.0); BLOOD UREA NITROGEN 16 MG/DL (7-18); CALCIUM LEVEL 8.4 MG/DL (8.8-10.2); CARBON DIOXIDE LEVEL 29 MEQ/L (21-32); CHLORIDE LEVEL 108 MEQ/L (98-107); CREATININE FOR GFR 0.59 MG/DL (0.55-1.30); GLOMERULAR FILTRATION RATE > 60.0 (>39); GLUCOSE, FASTING 78 MG/DL (70-100); POTASSIUM SERUM 3.9 MEQ/L (3.5-5.1); SODIUM LEVEL 140 MEQ/L (136-145); TOTAL PROTEIN 5.7 GM/DL (6.4-8.2)
[2022-07-12] MEDS: PREPARATION H SUPP (HEMORRHOID) PR SCH (07:54)
[2022-07-12] MEDS: rOPINIRole 1MG TAB PO SCH (08:16)
[2022-07-12] MEDS: PANTOPRAZOLE 40MG TAB (PROTONIX) PO SCH (08:16)
[2022-07-12] MEDS: LACTOBACILLUS ACIDOPHILUS CAP (BACID) PO SCH (08:16)
== END 2022-07-12 10:53 | disposition home or self-care (01) ==
LOC: M ED 09:36 → M ED INP 09:37 → ENRESERV 07-11 01:21 → M MSPAV 07-11 02:09
PROVIDERS: ADMIT Internal Medicine; ATTEND Internal Medicine
DX: K92.2 Gastrointestinal hemorrhage, unspecified (principal); Z86.16 Personal history of COVID-19; G20 Parkinson's disease; E78.5 Hyperlipidemia, unspecified; G25.81 Restless legs syndrome; E53.8 Deficiency of other specified B group vitamins; I49.1 Atrial premature depolarization; G43.909 Migraine, unspecified, not intractable, without status migrainosus; Z86.73 Personal history of transient ischemic attack (TIA), and cerebral infarction without residual deficits; K64.9 Unspecified hemorrhoids; I95.9 Hypotension, unspecified; K63.89 Other specified diseases of intestine; K83.8 Other specified diseases of biliary tract; N20.0 Calculus of kidney; I10 Essential (primary) hypertension; M85.80 Other specified disorders of bone density and structure, unspecified site; M54.9 Dorsalgia, unspecified; Z79.899 Other long term (current) drug therapy; Z79.01 Long term (current) use of anticoagulants; Z86.718 Personal history of other venous thrombosis and embolism; Z88.0 Allergy status to penicillin
CPT/HCPCS: 36415; 71046; 74177; 80047; 80053; 80076; 82150; 83605; 83690; 85025; 85027; 85610; 85730; 86850; 86900; 86901; 87040; 87428; 87631; 93005; 93041; 96361; 96365; 96366; 96367; 96375; 96376; 99285; C9113; G0378; J0744; Q9967